=== PATIENT | male | born 1985 | race Caucasian/White ===

== ENCOUNTER 2018-10-28 04:34 | Emergency (ER) | payer BC, SELFPAY ==
--- NOTE | 2018-10-28 04:37 | ED.BACK ---
HPI - Back Pain/Injury General Chief Complaint: Abdominal Pain Stated Complaint: Right side abdomen/back pain Time Seen by Provider: 10/28/18 04:36 Source: patient and family Mode of arrival: ambulatory Limitations: no limitations History of Present Illness HPI Narrative: 32-year-old male nonsmoker, otherwise healthy presents with a chief complaint of sudden onset right back pain with radiation around his right flank that woke him up this morning. He states that sharp, stabbing and intense. He denies provocation or palliation. He has nausea but denies any fever or shaking chills. He is not dizzy or weak or lightheaded. Has had some trouble with musculoskeletal back pain but states this is much different. He denies any recent injury MD Complaint: back pain Onset (ago): hour(s) Duration: constant Similar Symptoms Previously: No Location: right flank Severity: moderate Quality: sharp and aching Radiation: flank Relieving factors: none Exacerbating factors: none Associated symptoms: denies other symptoms Related Data Home Medications Medication Instructions Recorded Confirmed omeprazole magnesium [Acid Nip Wrapper 20 mg PO DAILY 10/28/18 10/28/18 (omeprazole)] Allergies Allergy/AdvReac Type Severity Reaction Status Date / Time No Known Drug Allergies Allergy Verified 10/28/18 04:47 Review of Systems Constitutional Denies chills, Denies fever(s), Denies lethargy and Denies weakness Eyes Denies change in vision, Denies eye discharge, Denies irritation and Denies loss of vision ENT Ears, Nose, Mouth, and Throat: Denies change in voice, Denies neck pain and Denies sore throat Cardiovascular Denies chest pain, Denies irregular heart rhythm, Denies lightheadedness, Denies palpitations, Denies dyspnea, Denies dyspnea on exertion and Denies orthopnea Respiratory Denies cough, Denies dyspnea, Denies dyspnea on exertion and Denies wheezing Gastrointestinal Gastrointestinal: Denies abdominal pain, Denies change in bowel habits, Denies diarrhea, Denies nausea and Denies vomiting Genitourinary Denies hematuria, Denies flank pain, Denies urinary incontinence and Denies urinary urgency Musculoskeletal Reports back pain and Denies neck pain Integumentary/Breasts Denies pruritus, Denies erythema, Denies rash and Denies wounds Neurologic Denies confusion, Denies loss of vision and Denies weakness Psychiatric Denies anxiety, Denies confusion, Denies depression, Denies homicidal ideation and Denies suicidal ideation Endocrine Denies palpitations Hematologic/Lymphatic Denies easy bruising Allergic/Immunologic Denies wheezing PFSH Social History Smoking Status: Never smoker Social History Smoking Status: Never smoker Exam Narrative Exam Narrative: GENERAL: Appears uncomfortable, appears to have difficulty finding a position of comfort HEAD: Atraumatic. Normocephalic. No temporal or scalp tenderness. EYES: Pupils equal round and reactive. Extraocular motions intact. No scleral icterus. No injection or drainage. ENT: Nose without bleeding, purulent drainage or septal hematoma. Throat without erythema, tonsillar hypertrophy or exudate. Uvula midline. Airway patent. NECK: Trachea midline. No JVD or lymphadenopathy. Supple, nontender, no meningeal signs. CARDIOVASCULAR: Regular rate and rhythm without murmurs, gallops, or rubs. RESPIRATORY: Clear to auscultation. Breath sounds equal bilaterally. No wheezes, rales, or rhonchi. GASTROINTESTINAL: Abdomen soft, non-tender, nondistended. No hepato-splenomegaly, or palpable masses. No guarding. EXTREMITIES: No clubbing, cyanosis, or edema. No joint tenderness, effusion, or edema noted. BACK: Nontender without deformity or crepitance. No flank tenderness. NEURO: AOx3. SKIN: No rash or erythema. Initial Vital Signs Initial Vital Signs: Vital Signs Temperature 98.0 F 10/28/18 04:48 Pulse Rate 78 10/28/18 04:48 Respiratory Rate 16 10/28/18 04:48 Blood Pressure 156/96 H 10/28/18 04:48 Pulse Oximetry 100 10/28/18 04:48 Course Orders Ordered: ED Orders 10/28/18 04:45 CT kidney ureter bladder (KUB) Stat 10/28/18 04:53 Alkaline Phosphatase Stat Aspartate Aminotransferase Stat Basic Metabolic Panel Stat Bilirubin Total Stat Complete Blood Count AUTO DIFF Stat Lipase Stat 10/28/18 06:04 US abdomen complete Stat Discontinued Medications Sodium Chloride (Normal Saline 0.9%) 1,000 mls @ 1,000 mls/hr IV BOLUS ONE Stop: 10/28/18 05:44 Last Admin: 10/28/18 04:56 Dose: 1,000 mls/hr Ketorolac Tromethamine (Toradol) 15 mg IV NOW ONE Stop: 10/28/18 04:46 Last Admin: 10/28/18 05:08 Dose: Not Given Ondansetron HCl (Zofran) 4 mg IV NOW ONE Stop: 10/28/18 04:46 Last Admin: 10/28/18 05:08 Dose: Not Given Vital Signs - 8 hr 10/28/18 04:48 10/28/18 05:30 10/28/18 06:20 Temperature 98.0 F Pulse Rate 78 72 70 Respiratory Rate 16 16 16 Blood Pressure 156/96 H Blood Pressure [Left Arm] 144/78 H 137/76 Pulse Oximetry 100 98 98 MDM - Back Pain/Injury Lab Data Result diagrams: 10/28/18 04:53 10/28/18 04:53 Lab Results 10/28/18 10/28/18 10/28/18 Range/Units 04:53 04:53 04:53 WBC 10.5 (4.5-11.0) X10^3/uL RBC 5.60 (4.5-5.9) X10^6/uL Hgb 16.4 (13.5-17.5) g/dL Hct 47.1 (41-53) % MCV 84.1 (80-100) fL MCH 29.2 (26-34) PG MCHC 34.8 (30-36) % RDW 13.5 (11.6-14.8) % Plt Count 285 (150-400) X10^3/uL Neut % (Auto) 60.0 (50-75) % Lymph % (Auto) 26.8 (25-40) % [place] % (Auto) 7.6 (3-14) % Eos % (Auto) 4.8 H (2-4) % Baso % (Auto) 0.8 (0-2) % Neut # (Auto) 6300 (8780-5639) /uL Lymph # (Auto) 2800 (3227-2681) /uL [place] # (Auto) 800 (0-900) /uL Eos # (Auto) 500 H (0-450) /uL Baso # (Auto) 100 (0-100) /uL Sodium 142 (137-145) mmol/L Potassium 4.0 (3.4-5.1) mmol/L Chloride 105 (98-107) mmol/L Carbon Dioxide 27 (22-32) mmol/L BUN 18 (9-20) mg/dL Creatinine 0.70 (0.66-1.25) mg/dL Estimated GFR > 60.0 (>60) mL/min BUN/Creatinine Ratio 25.7 H (6-22) Glucose 112 H (70-100) mg/dL Calcium 9.3 (8.4-10.2) mg/dL Total Bilirubin 1.1 (0.2-1.3) mg/dL AST 25 (17-59) IU/L Alkaline Phosphatase 82 (38-126) U/L Lipase 130 (23-300) U/L Urine Dip Bedside Urine Glucose Negative Bedside Urine Bilirubin - Negative Bedside Urine Ketone - Negative Urine Specific [place] 1.030 Bedside Urine Occult Blood - Negative Bedside Urine pH 6.0 Bedside Urine Protein - Negative Bedside Urine Urobilinogen - Negative Bedside Urine Nitrite - Negative Bedside Urine Leukocytes - Negative Esterase Discharge Plan Departure Patient Disposition: Home Clinical Impression: Biliary colic Instructions: DI for Biliary Colic Activity Restrictions/Additional Instructions: *You have been diagnosed with [ abdominal pain, likely biliary colic ] *What to do: *Take medications as directed *Follow up with your primary care provider in 2-3 days, call for an appointment. Let them know you were seen in the Emergency Department and that we ask that you be seen in follow up *Return to ER if you should have any new, worsening or concerning symptoms Prescriptions: No Action omeprazole magnesium [Acid Nip Wrapper (omeprazole)] 20 mg Capsule,Delayed Release(Dr/Ec) 20 mg PO DAILY RF: 0
--- NOTE | 2018-10-28 04:45 | DI.CT.S_ITS ---
PROCEDURE: CT KIDNEY URETER BLADDER (KUB) INDICATIONS: severe R flank pain with radiation around to front TECHNIQUE: Noncontrast 5 mm thick sections acquired from the diaphragms to the symphysis. 5 mm thick coronal and sagittal reformats were then performed. For radiation dose reduction, the following was used: automated exposure control, adjustment of mA and/or kV according to patient size. COMPARISON: None. FINDINGS: Image quality: Excellent. Lung bases: Lung bases are clear. Heart size is normal. Urinary system: Both kidneys are normal in size. No kidney stones. No hydronephrosis or perinephric fat stranding. Both ureters appear non-dilated throughout their expected courses. Bladder wall thickness is normal; no calcified bladder stones. Other solid organs: Liver is normal in size. Hepatic steatosis is seen. Small stones and hyperdense sludge material are seen in dependent portion of gallbladder lumen. No gallbladder wall thickening or pericholecystic fluid. Pancreas is normal in contours. Spleen is normal in size. No adrenal nodules. Peritoneum and bowel: Unenhanced bowel loops demonstrate normal wall thickness and caliber. No free fluid or air. Nodes and vessels: No retroperitoneal or mesenteric adenopathy by size criteria. A few subcentimeter lymph nodes are seen scattered in right lower quadrant mesentery, and measures up to 8 mm in short axis diameter, which could represent mesenteric adenitis. Aorta and inferior vena cava are normal in caliber. Abdominal wall: No ventral hernias. Pelvis: No free pelvic fluid. No inguinal hernias or adenopathy. Bones: No suspicious bony lesions. No vertebral body compression fractures. IMPRESSION: #1. No renal stone or hydronephrosis. #2. Cholelithiasis, no CT evidence of acute cholecystitis. Hepatic steatosis. #3. Normal appendix. No bowel obstruction. No free fluid or free air. Mildly prominent right lower quadrant mesenteric lymph nodes, which could indicate mesenteric adenitis. No significant discrepancy. Dictated by: John Stark M.D. on 10/28/2018 at 9:12 Approved by: John Stark M.D. on 10/28/2018 at 9:17
[2018-10-28 04:48] VITALS: BP 156/96; PULSE 78; RESP 16; TEMP 36.7; O2SAT 100; BMI 34.0
--- NOTE | 2018-10-28 04:52 | ED_ITS ---
HPI - Back Pain/Injury General Chief Complaint: Abdominal Pain Stated Complaint: Right side abdomen/back pain Time Seen by Provider: 10/28/18 04:36 Source: patient and family Mode of arrival: ambulatory Limitations: no limitations History of Present Illness HPI Narrative: 32-year-old male nonsmoker, otherwise healthy presents with a chief complaint of sudden onset right back pain with radiation around his right flank that woke him up this morning. He states that sharp, stabbing and intense. He denies provocation or palliation. He has nausea but denies any fever or shaking chills. He is not dizzy or weak or lightheaded. Has had some trouble with musculoskeletal back pain but states this is much different. He denies any recent injury MD Complaint: back pain Onset (ago): hour(s) Duration: constant Similar Symptoms Previously: No Location: right flank Severity: moderate Quality: sharp and aching Radiation: flank Relieving factors: none Exacerbating factors: none Associated symptoms: denies other symptoms Related Data Home Medications Medication Instructions Recorded Confirmed omeprazole magnesium [Acid Public Services Assistant 20 mg PO DAILY 10/28/18 10/28/18 (omeprazole)] Allergies Allergy/AdvReac Type Severity Reaction Status Date / Time No Known Drug Allergies Allergy Verified 10/28/18 04:47 Review of Systems Constitutional Denies chills, Denies fever(s), Denies lethargy and Denies weakness Eyes Denies change in vision, Denies eye discharge, Denies irritation and Denies loss of vision ENT Ears, Nose, Mouth, and Throat: Denies change in voice, Denies neck pain and Denies sore throat Cardiovascular Denies chest pain, Denies irregular heart rhythm, Denies lightheadedness, Denies palpitations, Denies dyspnea, Denies dyspnea on exertion and Denies orthopnea Respiratory Denies cough, Denies dyspnea, Denies dyspnea on exertion and Denies wheezing Gastrointestinal Gastrointestinal: Denies abdominal pain, Denies change in bowel habits, Denies diarrhea, Denies nausea and Denies vomiting Genitourinary Denies hematuria, Denies flank pain, Denies urinary incontinence and Denies urinary urgency Musculoskeletal Reports back pain and Denies neck pain Integumentary/Breasts Denies pruritus, Denies erythema, Denies rash and Denies wounds Neurologic Denies confusion, Denies loss of vision and Denies weakness Psychiatric Denies anxiety, Denies confusion, Denies depression, Denies homicidal ideation and Denies suicidal ideation Endocrine Denies palpitations Hematologic/Lymphatic Denies easy bruising Allergic/Immunologic Denies wheezing PFSH Social History Smoking Status: Never smoker Social History Smoking Status: Never smoker Exam Narrative Exam Narrative: GENERAL: Appears uncomfortable, appears to have difficulty finding a position of comfort HEAD: Atraumatic. Normocephalic. No temporal or scalp tenderness. EYES: Pupils equal round and reactive. Extraocular motions intact. No scleral icterus. No injection or drainage. ENT: Nose without bleeding, purulent drainage or septal hematoma. Throat without erythema, tonsillar hypertrophy or exudate. Uvula midline. Airway patent. NECK: Trachea midline. No JVD or lymphadenopathy. Supple, nontender, no meningeal signs. CARDIOVASCULAR: Regular rate and rhythm without murmurs, gallops, or rubs. RESPIRATORY: Clear to auscultation. Breath sounds equal bilaterally. No wheezes, rales, or rhonchi. GASTROINTESTINAL: Abdomen soft, non-tender, nondistended. No hepato- splenomegaly, or palpable masses. No guarding. EXTREMITIES: No clubbing, cyanosis, or edema. No joint tenderness, effusion, or edema noted. BACK: Nontender without deformity or crepitance. No flank tenderness. NEURO: AOx3. SKIN: No rash or erythema. Initial Vital Signs Initial Vital Signs: Vital Signs Temperature 98.0 F 10/28/18 04:48 Pulse Rate 78 10/28/18 04:48 Respiratory Rate 16 10/28/18 04:48 Blood Pressure 156/96 H 10/28/18 04:48 Pulse Oximetry 100 10/28/18 04:48 Course Orders Ordered: ED Orders 10/28/18 04:45 CT kidney ureter bladder (KUB) Stat 10/28/18 04:53 Alkaline Phosphatase Stat Aspartate Aminotransferase Stat Basic Metabolic Panel Stat Bilirubin Total Stat Complete Blood Count AUTO DIFF Stat Lipase Stat 10/28/18 06:04 US abdomen complete Stat Discontinued Medications Sodium Chloride (Normal Saline 0.9%) 1,000 mls @ 1,000 mls/hr IV BOLUS ONE Stop: 10/28/18 05:44 Last Admin: 10/28/18 04:56 Dose: 1,000 mls/hr Ketorolac Tromethamine (Toradol) 15 mg IV NOW ONE Stop: 10/28/18 04:46 Last Admin: 10/28/18 05:08 Dose: Not Given Ondansetron HCl (Zofran) 4 mg IV NOW ONE Stop: 10/28/18 04:46 Last Admin: 10/28/18 05:08 Dose: Not Given Vital Signs - 8 hr 10/28/18 04:48 10/28/18 05:30 10/28/18 06:20 Temperature 98.0 F Pulse Rate 78 72 70 Respiratory Rate 16 16 16 Blood Pressure 156/96 H Blood Pressure [Left Arm] 144/78 H 137/76 Pulse Oximetry 100 98 98 MDM - Back Pain/Injury Lab Data Result diagrams: 10/28/18 04:53 10/28/18 04:53 Lab Results 10/28/18 10/28/18 10/28/18 Range/Units 04:53 04:53 04:53 WBC 10.5 (4.5-11.0) X10^3/uL RBC 5.60 (4.5-5.9) X10^6/uL Hgb 16.4 (13.5-17.5) g/dL Hct 47.1 (41-53) % MCV 84.1 (80-100) fL MCH 29.2 (26-34) PG MCHC 34.8 (30-36) % RDW 13.5 (11.6-14.8) % Plt Count 285 (150-400) X10^3/uL Neut % (Auto) 60.0 (50-75) % Lymph % (Auto) 26.8 (25-40) % [place] % (Auto) 7.6 (3-14) % Eos % (Auto) 4.8 H (2-4) % Baso % (Auto) 0.8 (0-2) % Neut # (Auto) 6300 (2902-0376) /uL Lymph # (Auto) 2800 (5604-4906) /uL [place] # (Auto) 800 (0-900) /uL Eos # (Auto) 500 H (0-450) /uL Baso # (Auto) 100 (0-100) /uL Sodium 142 (137-145) mmol/L Potassium 4.0 (3.4-5.1) mmol/L Chloride 105 (98-107) mmol/L Carbon Dioxide 27 (22-32) mmol/L BUN 18 (9-20) mg/dL Creatinine 0.70 (0.66-1.25) mg/dL Estimated GFR > 60.0 (>60) mL/min BUN/Creatinine Ratio 25.7 H (6-22) Glucose 112 H (70-100) mg/dL Calcium 9.3 (8.4-10.2) mg/dL Total Bilirubin 1.1 (0.2-1.3) mg/dL AST 25 (17-59) IU/L Alkaline Phosphatase 82 (38-126) U/L Lipase 130 (23-300) U/L Urine Dip Bedside Urine Glucose Negative Bedside Urine Bilirubin - Negative Bedside Urine Ketone - Negative Urine Specific [place] 1.030 Bedside Urine Occult Blood - Negative Bedside Urine pH 6.0 Bedside Urine Protein - Negative Bedside Urine Urobilinogen - Negative Bedside Urine Nitrite - Negative Bedside Urine Leukocytes - Negative Esterase Discharge Plan Departure Patient Disposition: Home Clinical Impression: Biliary colic Instructions: DI for Biliary Colic Activity Restrictions/Additional Instructions: *You have been diagnosed with [ abdominal pain, likely biliary colic ] *What to do: *Take medications as directed *Follow up with your primary care provider in 2-3 days, call for an a ppointment. Let them know you were seen in the Emergency Department and that we ask that you be seen in follow up *Return to ER if you should have any new, worsening or concerning symptoms Prescriptions: No Action omeprazole magnesium [Acid Public Services Assistant (omeprazole)] 20 mg Capsule,Delayed Release(Dr/Ec) 20 mg PO DAILY RF: 0
[2018-10-28] MEDS: SODIUM CHLORIDE 0.9% 1,000 ML 1000 ML IV (04:56)
--- NOTE | 2018-10-28 05:11 | PC.NURSE ---
Pt reports at this time, abd/back pain resolved and declines Toradol and Zofran.
[2018-10-28 05:13] LABS: BUN Creatinine Ratio 25.7 (6-22); Blood Urea Nitrogen 18 mg/dL (9-20); Calcium 9.3 mg/dL (8.4-10.2); Carbon Dioxide 27 mmol/L (22-32); Chloride 105 mmol/L (98-107); Estimated Glomerular Filt Rate > 60.0 mL/min (>60); Glucose 112 mg/dL (70-100); HEMOLYSIS 16 (0-50); Sodium 142 mmol/L (137-145)
[2018-10-28 05:14] LABS: Add Manual Diff / Slide Review NO; Basophils Absolute Auto 100 /uL (0-100); Basophils Percent Auto 0.8 % (0-2); Eosinophils Absolute Auto 500 /uL (0-450); Eosinophils Percent Auto 4.8 % (2-4); Hematocrit 47.1 % (41-53); Hemoglobin 16.4 g/dL (13.5-17.5); Lymphocytes Absolute Auto 2800 /uL (1100-4500); Lymphocytes Percent Auto 26.8 % (25-40); Mean Corpuscular HGB Conc 34.8 % (30-36); Mean Corpuscular Hemoglobin 29.2 PG (26-34); Mean Corpuscular Volume 84.1 fL (80-100); Monocytes Absolute Auto 800 /uL (0-900); Monocytes Percent Auto 7.6 % (3-14); Neutrophils Absolute Auto 6300 /uL (1500-7000); Platelet Count 285 X10^3/uL (150-400); Red Cell Distribution Width 13.5 % (11.6-14.8); White Blood Cell Count 10.5 X10^3/uL (4.5-11.0)
[2018-10-28 05:25] LABS: Alkaline Phosphatase 82 U/L (38-126); Aspartate Aminotransferase 25 IU/L (17-59); Bilirubin Total 1.1 mg/dL (0.2-1.3); Lipase 130 U/L (23-300)
[2018-10-28 05:30] VITALS: BP 144/78; PULSE 72; RESP 16; O2SAT 98
--- NOTE | 2018-10-28 06:04 | DI.US.S_ITS ---
PROCEDURE: US ABDOMEN COMPLETE INDICATIONS: EPIGASTRIC PAIN TECHNIQUE: Real-time scanning was performed of the abdominal and retroperitoneal organs, with image documentation. COMPARISON: None. FINDINGS: Liver: Liver is normal in size. Increased liver parenchymal echotexture is seen. No discrete hepatic lesion. Gallbladder: 8mm stone is seen near gallbladder neck. No gallbladder wall thickening or sonographic Saunders's sign. Biliary ducts: Intrahepatic bile ducts are non-dilated. Extrahepatic bile duct caliber measures 5.3 mm. Normal is 6-7 mm or less in diameter, or 10 mm or less post-cholecystectomy. Pancreas: Visualized portions of the pancreas are sonographically normal. Spleen: Spleen is normal in size and homogeneous in echotexture. Kidneys: Kidneys are normal in size and echotexture. Right kidney measures 11.9 cm long; left kidney measures 13 cm long. No hydronephrosis or nephrolithiasis. No solid masses. Aorta: Visualized aorta is normal in caliber at less than 3 cm. Iliacs: Proximal common iliac arteries are normal in caliber at less than 2.5 cm. IVC: Intrahepatic inferior vena cava is patent. Miscellaneous: No free abdominal fluid. IMPRESSION: #1. Cholelithiasis with no sonographic evidence of acute cholecystitis. No biliary ductal dilatation. #2. Hepatic steatosis. No discrete hepatic lesion. Dictated by: John Stark M.D. on 10/28/2018 at 10:42 Approved by: John Stark M.D. on 10/28/2018 at 10:43
[2018-10-28 06:20] VITALS: BP 137/76; PULSE 70; RESP 16; O2SAT 98
[2018-10-28 07:09] VITALS: BP 133/79; PULSE 73; RESP 16; O2SAT 99
== END 2018-10-28 07:06 | disposition home or self-care (01) ==
PROVIDERS: Emergency Provider Emergency Medicine
DX: K80.50 Calculus of bile duct without cholangitis or cholecystitis without obstruction (principal); M54.9 Dorsalgia, unspecified
CPT/HCPCS: 36591; 74176; 76700; 80048; 81003; 82247; 83690; 84075; 84450; 85025; 96360; 96361; 99283; 99284

== ENCOUNTER 2019-03-10 04:01 | Emergency (ER) | payer BC, SELFPAY ==
--- NOTE | 2019-03-10 04:05 | ED_ITS ---
HPI - Abdominal Pain General Chief Complaint: Abdominal Pain Stated Complaint: gallbladder pain x3 hours Time Seen by Provider: 03/10/19 04:04 Source: patient Mode of arrival: ambulatory Limitations: no limitations History of Present Illness HPI narrative: Patient is a 33-year-old male with known gallbladder disease. Was diagnosed back in September of this year after visit here to the emergency department was diagnosed with an ultrasound. At that time he had normal LFTs and lipase and bilirubin. He was instructed to contact his primary provider for referral to see surgery. He does not have a primary provider so has not followed up with anyone regarding his symptoms. He states he has not had any symptoms since that time until Monday of this week where he stated that he had a ?flare? of his pain. He states that episode completely resolved and then returned again approximately 3 hours ago. He said he did eat some greasy foods last evening. No vomiting. His epigastric pain. Has not tried anything for symptoms prior to arrival. Related Data Home Medications Medication Instructions Recorded Confirmed omeprazole magnesium [Acid [employer] Specialist 20 mg PO DAILY 10/28/18 10/28/18 (omeprazole)] Previous Rx's Medication Instructions Recorded ondansetron 4 mg PO Q6H PRN #14 tab 03/10/19 tramadol [Ultram] 50 mg PO BID PRN #10 tab 03/10/19 Allergies Allergy/AdvReac Type Severity Reaction Status Date / Time No Known Drug Allergies Allergy Verified 10/28/18 04:47 Review of Systems Constitutional Denies fever(s) Cardiovascular Denies chest pain and Denies dyspnea Respiratory Denies dyspnea Gastrointestinal Gastrointestinal: Reports abdominal pain, Denies change in stool character, Denies nausea and Denies vomiting Integumentary/Breasts Denies new lesions and Denies rash Hematologic/Lymphatic Denies easy bleeding and Denies easy bruising [facility] Medical History Gastroesophageal reflux disease (Acute) Social History Smoking Status: Never smoker Social History Smoking Status: Never smoker Exam Initial Vital Signs Initial Vital Signs: Vital Signs Temperature 98.0 F 03/10/19 04:09 Pulse Rate 72 03/10/19 04:09 Respiratory Rate 18 03/10/19 04:09 Blood Pressure 162/97 H 03/10/19 04:09 Pulse Oximetry 100 03/10/19 04:09 Const General: cooperative, well developed and well groomed Orientation: alert, awake and oriented x3 HENMT Head: normal to inspection and normocephalic Eyes Periorbital: periorbital findings normal Resp Effort & Inspection: normal respiratory effort Auscultation: clear to auscultation bilaterally Cardio Rate: regular rate Rhythm: regular rhythm GI Inspection: non-distended Palpation: soft, No firm and tender (Epigastric tenderness without rebound or guarding) Skin Lesions: no lesions Rashes: no rashes Neuro General: alert and awake Cognition: normal cognition Speech: speech normal Extrem General: normal to inspection and capillary refill normal Psych Appearance: grossly normal and well kempt Course Orders Ordered: ED Orders 03/10/19 04:06 US abdomen limited Stat 03/10/19 04:25 Complete Blood Count AUTO DIFF Stat Comprehensive Metabolic Panel Stat Lipase Stat Discontinued Medications Sodium Chloride (Normal Saline 0.9%) 1,000 mls @ 1,000 mls/hr IV BOLUS ONE Stop: 03/10/19 05:04 Last Infusion: 03/10/19 05:46 Dose: 0 mls/hr Admin: 03/10/19 04:22 Dose: 1,000 mls/hr Morphine Sulfate (Morphine) 4 mg IV NOW ONE Stop: 03/10/19 04:06 Last Admin: 03/10/19 04:22 Dose: 4 mg Ondansetron HCl (Zofran) 4 mg IV NOW ONE Stop: 03/10/19 04:06 Last Admin: 03/10/19 04:22 Dose: 4 mg Vital Signs - 8 hr 03/10/19 04:09 03/10/19 05:10 Temperature 98.0 F Pulse Rate 72 70 Respiratory Rate 18 16 Blood Pressure 162/97 H Blood Pressure [Left Arm] 150/90 H Pulse Oximetry 100 99 MDM - Abdominal Pain Lab Data Attestation: I reviewed the patient's lab results. Result diagrams: 03/10/19 04:25 03/10/19 04:25 Lab Results 03/10/19 03/10/19 Range/Units 04:25 04:25 WBC 11.2 H (4.5-11.0) X10^3/uL RBC 5.40 (4.5-5.9) X10^6/uL Hgb 15.9 (13.5-17.5) g/dL Hct 44.9 (41-53) % MCV 83.2 (80-100) fL MCH 29.4 (26-34) PG MCHC 35.3 (30-36) % RDW 13.5 (11.6-14.8) % Plt Count 259 (150-400) X10^3/uL Neut % (Auto) 68.6 (50-75) % Lymph % (Auto) 20.6 L (25-40) % [place] % (Auto) 6.7 (3-14) % Eos % (Auto) 3.5 (2-4) % Baso % (Auto) 0.6 (0-2) % Neut # (Auto) 7700 H (9882-0105) /uL Lymph # (Auto) 2300 (1449-8596) /uL [place] # (Auto) 800 (0-900) /uL Eos # (Auto) 400 (0-450) /uL Baso # (Auto) 100 (0-100) /uL Sodium 139 (137-145) mmol/L Potassium 3.6 (3.4-5.1) mmol/L Chloride 102 (98-107) mmol/L Carbon Dioxide 28 (22-32) mmol/L BUN 19 (9-20) mg/dL Creatinine 0.80 (0.66-1.25) mg/dL Estimated GFR > 60.0 (>60) mL/min BUN/Creatinine Ratio 23.8 H (6-22) Glucose 113 H (70-100) mg/dL Calcium 9.1 (8.4-10.2) mg/dL Total Bilirubin 1.3 (0.2-1.3) mg/dL AST 24 (17-59) IU/L ALT 48 (21-72) IU/L Alkaline Phosphatase 98 (38-126) U/L Total Protein 7.5 (6.3-8.2) g/dL Albumin 4.3 (3.5-5.0) g/dL Globulin 3.2 (1.7-4.1) g/dL Albumin/Globulin Ratio 1.3 (1.0-2.8) Lipase 86 (23-300) U/L Imaging Data US - abdomen: Radiologist's impression: Preliminary read by real Radiology Cholelithiasis. Distended gallbladder which may simply related to patient's fasting. No gallbladder wall thickening or pericholecystic fluid indicate acute cholecystitis. MDM Narrative Medical decision making narrative: Patient's symptoms are improved after medications here in the emergency department. Ultrasound shows a distended gallbladder with cholelithiasis however no signs of acute cholecystitis. Labs unremarkable. LFTs unremarkable. Bilirubin unremarkable. He was given return precautions and follow-up instructions. Will treat symptoms currently. He expressed understanding and agreement plan. Discharge Plan Departure Patient Disposition: Home Clinical Impression: Cholelithiasis Qualifiers: Cholelithiasis location: gallbladder Cholecystitis presence: without cholecystitis Biliary obstruction: without biliary obstruction Qualified Code(s): K80.20 - Calculus of gallbladder without cholecystitis without obstruction Instructions: DI for Gallstones Activity Restrictions/Additional Instructions: Take the medications as directed as needed. You can contact 360 help use tablet sure primary provider. You can also contact the [facility] at to discuss the possibility of having your gallbladder removed. Return to the emergency department for any new or worsening symptoms Prescriptions: New tramadol [Ultram] 50 mg tablet 50 mg PO BID PRN (Reason: pain) Qty: 10 RF: 0 ondansetron 4 mg tablet,disintegrating 4 mg PO Q6H PRN (Reason: nausea and vomiting) Qty: 14 RF: 0 No Action omeprazole magnesium [Acid [employer] Specialist (omeprazole)] 20 mg Capsule,Delayed Release(Dr/Ec) 20 mg PO DAILY RF: 0
--- NOTE | 2019-03-10 04:06 | DI.US.S_ITS ---
PROCEDURE: US ABDOMEN LIMITED INDICATIONS: RIGHT UPPER QUADRANT PAIN TECHNIQUE: Real-time focused scanning was performed of the abdomen, with image documentation. COMPARISON: None. FINDINGS: The liver is mildly enlarged at 18.6 cm in length. Diffusely increased echogenicity of the liver is identified when compared to the right kidney. However, there is decreased echogenicity identified involving the liver at the gallbladder fossa, suggesting an area of fatty sparing. No definite liver lesion is appreciated. The gallbladder is measuring within the upper limits of normal for size. Multiple tiny mobile gallstones are evident within the neck of the gallbladder. Borderline gallbladder wall thickening is present. There is no pericholecystic fluid. No intrahepatic biliary dilatation is appreciated. The common bile duct appears to be normal in size at approximately 4 mm. Imaged portions of the pancreas are unremarkable. The right kidney, abdominal aorta, and inferior vena cava were not imaged. IMPRESSION: 1. Cholelithiasis. Clinical correlation to exclude acute cholecystitis is recommended, given borderline thickening of the wall of the gallbladder. 2. Hepatic steatosis. Dictated by: Ron Vergara M.D. on 03/10/2019 at 8:40 Approved by: Ron Vergara M.D. on 03/10/2019 at 8:42
[2019-03-10 04:09] VITALS: BP 162/97; PULSE 72; RESP 18; TEMP 36.7; O2SAT 100; BMI 33.1
[2019-03-10] MEDS: MORPHINE 4 MG/ML INJ IV ×2 (04:22→06:07)
[2019-03-10] MEDS: SODIUM CHLORIDE 0.9% 1,000 ML 1000 ML IV (04:22)
[2019-03-10] MEDS: ONDANSETRON 4 MG/2 ML INJ IV (04:22)
--- NOTE | 2019-03-10 04:28 | PC.NURSE ---
Ultrasound paged at [phone]
[2019-03-10 04:36] LABS: Add Manual Diff / Slide Review NO; Basophils Absolute Auto 100 /uL (0-100); Basophils Percent Auto 0.6 % (0-2); Eosinophils Absolute Auto 400 /uL (0-450); Eosinophils Percent Auto 3.5 % (2-4); Hematocrit 44.9 % (41-53); Hemoglobin 15.9 g/dL (13.5-17.5); Lymphocytes Absolute Auto 2300 /uL (1100-4500); Lymphocytes Percent Auto 20.6 % (25-40); Mean Corpuscular HGB Conc 35.3 % (30-36); Mean Corpuscular Hemoglobin 29.4 PG (26-34); Mean Corpuscular Volume 83.2 fL (80-100); Monocytes Absolute Auto 800 /uL (0-900); Monocytes Percent Auto 6.7 % (3-14); Neutrophils Absolute Auto 7700 /uL (1500-7000); Neutrophils Percent Auto 68.6 % (50-75); Platelet Count 259 X10^3/uL (150-400); Red Cell Distribution Width 13.5 % (11.6-14.8); White Blood Cell Count 11.2 X10^3/uL (4.5-11.0)
[2019-03-10 04:44] LABS: Alanine Aminotransferase 48 IU/L (21-72); Albumin 4.3 g/dL (3.5-5.0); Albumin Globulin Ratio 1.3 (1.0-2.8); Alkaline Phosphatase 98 U/L (38-126); Aspartate Aminotransferase 24 IU/L (17-59); BUN Creatinine Ratio 23.8 (6-22); Bilirubin Total 1.3 mg/dL (0.2-1.3); Blood Urea Nitrogen 19 mg/dL (9-20); Calcium 9.1 mg/dL (8.4-10.2); Carbon Dioxide 28 mmol/L (22-32); Chloride 102 mmol/L (98-107); Estimated Glomerular Filt Rate > 60.0 mL/min (>60); Globulin 3.2 g/dL (1.7-4.1); Glucose 113 mg/dL (70-100); HEMOLYSIS < 15 (0-50); Lipase 86 U/L (23-300); Potassium 3.6 mmol/L (3.4-5.1); Sodium 139 mmol/L (137-145); Total Protein 7.5 g/dL (6.3-8.2)
[2019-03-10 05:10] VITALS: BP 150/90; PULSE 70; RESP 16; O2SAT 99
[2019-03-10 06:13] VITALS: BP 148/80; PULSE 80; RESP 16; O2SAT 98
== END 2019-03-10 05:56 | disposition home or self-care (01) ==
PROVIDERS: Emergency Provider Emergency Medicine
DX: K80.20 Calculus of gallbladder without cholecystitis without obstruction (principal)
CPT/HCPCS: 36591; 76705; 80053; 83690; 85025; 96361; 96374; 96375; 96376; 99283; 99284; J2270; J2405

== ENCOUNTER 2019-05-21 16:45 | Outpatient (RCR) | payer BC, SELFPAY ==
--- NOTE | 2019-04-30 15:30 | PT.OIE ---
Current Diagnoses Lumbago with sciatica, right side (04/30/19) Past Medical History (Last Reviewed 03/10/19 @ 04:14 by Ricahrd Chowdhury DO) Gastroesophageal reflux disease (Acute) Visit Care Team Role Provider Type Vesna Dumont PA-C Attending Provider Advanced Test Car Driver Specialty: Internal Medicine Address: [address] [place] [address], [id number] Email: [email or web address] [facility] Initial Evaluation PT-OP-A Visit Information Start: 04/26/19 16:41 Freq: Status: Active Protocol: Document 04/30/19 08:18 LRN (Rec: 04/30/19 10:48 LRN [id number]) Out-Patient Physical Therapy Visit Information Visit Information Visit Type Initial Evaluation Visit Start Time 08:18 Visit Stop Time 09:15 Total Visit Minutes 57 Visit Number 1 Number of NUT SIFTER Visits 0 Evaluation Information Evaluation Date 04/30/19 Precautions Precautions History of back pain PT-OP-B Current Condition Start: 04/26/19 16:41 Freq: Status: Active Protocol: Document 04/30/19 08:18 LRN (Rec: 04/30/19 10:48 LRN [id number]) Current Condition History of Current Condition Onset Date 2 weeks ago Current Complaints R back and thigh (inner and anterior) pain. Occasional rocky SI pain. History of Current Condition Pt reports insidious onset of back soreness 2 weeks ago. He started doing stretches to keep it from getting worse. 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 He took Tramadol ( pain med), and a muscle relaxor that helped him to sleep. He returned to work and a couple days later returned to the walk in clinic and was given medications. He also saw a chiropractor without relief from his pain. Notes his body shifts when he has pain, but is straight when his pain goes away. Prior Treatments and Tests foster care therapist and was told to shift right. No tests. Future Testing and Treatments Planned None Developmental History Developmental History Previous back pain 1 yr ago of insidious onset, hip stretches had helped with good results and a week of missed work. Current episode of back pain of insidious onset worsened after spending 2-3 days in [place]. He has had foster care therapist that did not appear to be as helpful as it was in the past. He states he went to a walk-in clinic in [place] and was given medications. He comes to therapy reporting improvement in his condition since initial onset and would like full resolution of pain and education in preventing reoccurance of onset. Treatment Goals Patient/Caregiver Goals Pt goals: Not to be in pain. Learn self care to prevent reoccurance. Prior Functional Status Baseline Function- ADL's Independent Baseline Function- Mobility Independent Baseline Function- Work/School Works [employer] FT. Lifting up to 60# Baseline Function- Recreation/Hobbies Sit and plays video games. 1-2 hours getting up every hour Current Functional Impairments (Reported) Functional Limitations- ADL's Discomfort initially getting up out of a chair. Sitting: max 20' starts to get uncomfortable. Functional Limitations- Mobility/Gait Discomfort walking. Functional Limitations- Work/School Limiting lifting 10#-20#. Functional Limitations- Recreation/ Pain with sitting up straight Hobbies for video games. Must recline to play games but gets discomfort in anteromedial left thigh. Personal Factors Other Personal Factors That May Effect History of back pain. Therapy/Recovery Job requires heavy lifting. Regularly plays video games during free time. PT-OP-C Subjective Start: 04/26/19 16:41 Freq: Status: Active Protocol: Document 04/30/19 08:18 LRN (Rec: 04/30/19 10:48 LRN [id number]) Patient Questionnaires Oswestry Low Back Index Oswestry Score 16 Oswestry Impairment 1 to 19% Impaired (Score 1-19) OP-PT Pain Assessment Pain Assessment Grid Paper Pain Assessment Grid Completed Yes Location Low back Pain Location Details R>L, occasionally on the left Intensity 5 Scale Used Numeric (1 - 10) Description Aching R thigh Pain Location Details R anterior and medial thigh Intensity 2 Scale Used Numeric (1 - 10) Description Aching Home Pain Medication Use Pain Medications Used Yes Home Pain Medication Frequency Stomach medication, Tylenol and IBP as needed. Pain Behaviors Pain Behaviors Restlessness Comments Pain Comments Pt stood during history taking part of examination. PT-OP-F Manual Assessment Start: 04/26/19 16:41 Freq: Status: Active Protocol: Document 04/30/19 08:18 LRN (Rec: 05/02/19 13:29 LRN [id number]) Manual Assessments Soft Tissue Assessment Soft Tissue Mobility Assessment Prone: R SIJ is deep. Joint Mobility Assessment Joint Mobility Assessment L sacrum stuck in flexion. PT-OP-H Neuro Start: 04/26/19 16:41 Freq: Status: Active Protocol: Document 04/30/19 08:18 LRN (Rec: 05/02/19 13:29 LRN [id number]) Sensation Evaluation Comments Summary Comments Rocky LE sensation is intact. Deep Tendon Reflex & Clonus Assessment Deep Tendon Reflex Bilateral Achilles Deep Tendon Reflex 2+ Normal Bilateral Patellar Deep Tendon Reflex 2+ Normal PT-OP-J Posture/Palpation/Skin Start: 04/26/19 16:41 Freq: Status: Active Protocol: Document 04/30/19 08:18 LRN (Rec: 05/02/19 13:29 LRN [id number]) Posture Evaluation Position Standing Evaluation View All positions Head/C-Spine Posture Forward Head T-Spine Posture Flexible Scoliosis on (L) L-Spine Posture Increased Lordosis Scapula Posture (L) Depressed Pelvis Posture Anteriorly Tilted Hip Posture (L) Flexed,(R) Flexed Ankle/Foot Posture (L) Calcaneal Inversion,(R) Calcaneal Inversion,(L) Forefoot Inversion,(R) Forefoot Inversion Foot Arch (L) Low Arch,(R) Low Arch Palpation Assessment Location Low back Palpation Location R lumbar paraspinals and gluteals Palpation Findings Muscle Guarding PT-OP-K Range of Motion Start: 04/26/19 16:41 Freq: Status: Active Protocol: Document 04/30/19 08:18 LRN (Rec: 05/02/19 13:29 LRN [id number]) Lumbar Spine Range of Motion Lumbar Spine Active Degrees Testing Position Standing Flexion 55 Extension 25 Rotation Left 25 Rotation Right 30 Lateral Flexion Left 15 Lateral Flexion Right 13 ROM Limitations Pain Comments R PSIS with L sidebend Hip Goniometric Range of Motion Hip Right Passive Testing Position Supine Straight Leg Raise 50 Internal Rotation 15 External Rotation 70 Left Passive Testing Position Supine Straight Leg Raise 50 Internal Rotation 15 External Rotation 65 PT-OP-L Special Tests Start: 04/26/19 16:41 Freq: Status: Active Protocol: Document 04/30/19 08:18 LRN (Rec: 04/30/19 10:48 LRN [id number]) Special Tests Neural Special Tests- Lower Body Sciatic Nerve Tension Test Results + bilaterally Comments PSLR is 50 deg's bilaterally PT-OP-M Strength Start: 04/26/19 16:41 Freq: Status: Active Protocol: Document 04/30/19 08:18 LRN (Rec: 05/02/19 13:29 LRN [id number]) Trunk Strength Trunk Manual Muscle Testing Testing Position Supine Flexion 3+ Fair+ Rotation Left 3+ Fair+ Rotation Right 3+ Fair+ Lateral Flexion Left 3+ Fair+ Lateral Flexion Right 3+ Fair+ Hip Strength Hip Manual Muscle Testing Right Reason Not Measured WFL Left Reason Not Measured WFL PT-OP-Q Treatments Start: 04/26/19 16:41 Freq: Status: Active Protocol: Document 04/30/19 08:18 LRN (Rec: 04/30/19 17:08 LRN [id number]) Therapeutic Exercises Supine Exercises TA Supine Exercise Name TA awareness training and wan using MESA training. Reps/Minutes 8 Manual Therapy Treatment Joint Mobilizations Innominate mobs Direction Correction for R anterior/L posterior rot innominate Body Position Supine Reps/Duration 9 Self-Care/Home Management Treatment Education Patient Education Body Mechanics,Home Exercise Program Activities Self-Care/Home Management Activities I/S pt to work on TA contraction, proper bending/ squat mechanics using leg vs back to bend over. PT-OP-T Assessment and Plan Start: 04/26/19 16:41 Freq: Status: Active Protocol: Document 04/30/19 08:18 LRN (Rec: 04/30/19 10:48 LRN [id number]) Physical Therapy Assessment Rehab Potential Rehabilitation Potential Good Evaluation Complexity Number of Personal Factors/Comorbidities 1-2 Number of Body Systems Impaired 4 or More Clinical Presentation at Evaluation Evolving Impairments Impairments Activity Tolerance,Pain, Posture,ROM,Strength Other Concerns Fall Risk No Age Related Concerns Effect of injury on home and social settings. Barriers to Rehabilitation Pt working in a physically demanding job. Goals Four Impairment Pt unable to perform a TA contraction to provide proper core stability. Short Term Goal (STG) Pt will be able to contract his TA on command and reflexively. STG Duration 05/21/19 [facility] Goal (LTG) Pt will be able to maintain core stability with movements of his LE's against gravity during LE MMT. LTG Duration 06/11/19 Three Impairment Pt lacks knowledge of proper body mechanics and is limited in lifting [employer] Goal (LTG) Pt will be able to lift 60# without pain. LTG Duration 06/11/19 Two Impairment R anterior and medial thigh pain, occasional back pain [facility] Goal (LTG) Eliminate R leg and back pain with pt able to return to work without reoccurance of pain. LTG Duration 06/11/19 One Impairment Lacks appropriate HEP [facility] Goal (LTG) Pt will be independent in a self care HEP. LTG Duration 06/25/19 Assessment Summary Assessment Pt presents with a mechanical and soft tissue dysfunction of the pelvic region with a rotation of the R innominate anteriorly/L innominate posteriorly muscle guarding of the R hip and LE. He demonstrates core weakness and lacks proper body mechanics training. The pt will benefit from skilled physical therapy for manual and soft tissue therapy, neuro reeducation, core stabilization, education in proper transfer and body mechanics and therapeutic exercises and education in a self prison program. Physical Therapy Plan Frequency and Duration Frequency of Treatment 2x/Week Duration of Treatment 6-8 weeks. Plan of Care Start Date 04/30/19 Plan of Care End Date 06/25/19 Therapeutic Interventions Therapeutic Interventions Home Exercise Program,Joint Mobilizations,Manual Therapy, Neuromuscular Re-education, Patient/Caregiver Education, Self-Care/Home Management,Soft Tissue Mobilization,Taping, Therapeutic Exercises Modalities Cold Pack/Ice Massage,Electric Stimulation,Hot Packs, Ultrasound Next Visit Focus/Plan Next Note Type Treatment Note Next Visit Plan The pt is planning on going for a week vacation next week; therefore start with MET for postural corrections, and body mechanics training, HEP of core stabilization exs to do on vacation. End with cryotherapy and modalities if needed for pain. When the pt returns, progress the pt when stable with core stabilization and for preparation for return to work with good body mechanics for safe and proper care of his back.
--- NOTE | 2019-05-03 16:27 | PT.OTN ---
Current Diagnoses Lumbago with sciatica, right side (05/03/19) Physical Therapy Treatment Note PT-OP-A Visit Information Start: 04/26/19 16:41 Freq: Status: Active Protocol: Document 05/03/19 11:20 LRN (Rec: 05/03/19 12:07 LRN [id number]) Out-Patient Physical Therapy Visit Information Visit Information Visit Type Treatment Note Visit Start Time 11:21 Visit Stop Time 12:04 Total Visit Minutes 43 Visit Number 2 Number of SUPERVISOR MARBLE Visits 0 Evaluation Information Evaluation Date 04/30/19 Precautions Precautions History of back pain PT-OP-B Current Condition Start: 04/26/19 16:41 Freq: Status: Active Protocol: Document 04/30/19 08:18 LRN (Rec: 04/30/19 10:48 LRN [id number]) Current Condition History of Current Condition Onset Date 2 weeks ago Current Complaints R back and thigh (inner and anterior) pain. Occasional rocky SI pain. History of Current Condition Pt reports insidious onset of back soreness 2 weeks ago. He started doing stretches to keep it from getting worse. 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 He took Tramadol ( pain med), and a muscle relaxor that helped him to sleep. He returned to work and a couple days later returned to the walk in clinic and was given medications. He also saw a chiropractor without relief from his pain. Notes his body shifts when he has pain, but is straight when his pain goes away. Prior Treatments and Tests social worker palliative care and was told to shift right. No tests. Future Testing and Treatments Planned None Developmental History Developmental History Previous back pain 1 yr ago of insidious onset, hip stretches had helped with good results and a week of missed work. Current episode of back pain of insidious onset worsened after spending 2-3 days in [place]. He has had social worker palliative care that did not appear to be as helpful as it was in the past. He states he went to a walk-in clinic in [place] and was given medications. He comes to therapy reporting improvement in his condition since initial onset and would like full resolution of pain and education in preventing reoccurance of onset. Treatment Goals Patient/Caregiver Goals Pt goals: Not to be in pain. Learn self care to prevent reoccurance. Prior Functional Status Baseline Function- ADL's Independent Baseline Function- Mobility Independent Baseline Function- Work/School Works [employer]. Lifting up to 60# Baseline Function- Recreation/Hobbies Sit and plays video games. 1-2 hours getting up every hour Current Functional Impairments (Reported) Functional Limitations- ADL's Discomfort initially getting up out of a chair. Sitting: max 20' starts to get uncomfortable. Functional Limitations- Mobility/Gait Discomfort walking. Functional Limitations- Work/School Limiting lifting 10#-20#. Functional Limitations- Recreation/ Pain with sitting up straight Hobbies for video games. Must recline to play games but gets discomfort in anteromedial left thigh. Personal Factors Other Personal Factors That May Effect History of back pain. Therapy/Recovery Job requires heavy lifting. Regularly plays video games during free time. PT-OP-C Subjective Start: 04/26/19 16:41 Freq: Status: Active Protocol: Document 05/03/19 11:20 LRN (Rec: 05/03/19 15:59 LRN [id number]) OP-PT Subjective Patient Comments Patient Comments States he has been better, now has a dull pain rated 1/10. He did return to work yesterday and tried to move properly, so he did not have an increase in pain by end of work day. Patient Reported Progress Improving PT-OP-F Manual Assessment Start: 04/26/19 16:41 Freq: Status: Active Protocol: Document 04/30/19 08:18 LRN (Rec: 05/02/19 13:29 LRN [id number]) Manual Assessments Soft Tissue Assessment Soft Tissue Mobility Assessment Prone: R SIJ is deep. Joint Mobility Assessment Joint Mobility Assessment L sacrum stuck in flexion. PT-OP-H Neuro Start: 04/26/19 16:41 Freq: Status: Active Protocol: Document 04/30/19 08:18 LRN (Rec: 05/02/19 13:29 LRN [id number]) Sensation Evaluation Comments Summary Comments Rocky LE sensation is intact. Deep Tendon Reflex & Clonus Assessment Deep Tendon Reflex Bilateral Achilles Deep Tendon Reflex 2+ Normal Bilateral Patellar Deep Tendon Reflex 2+ Normal PT-OP-J Posture/Palpation/Skin Start: 04/26/19 16:41 Freq: Status: Active Protocol: Document 04/30/19 08:18 LRN (Rec: 05/02/19 13:29 LRN [id number]) Posture Evaluation Position Standing Evaluation View All positions Head/C-Spine Posture Forward Head T-Spine Posture Flexible Scoliosis on (L) L-Spine Posture Increased Lordosis Scapula Posture (L) Depressed Pelvis Posture Anteriorly Tilted Hip Posture (L) Flexed,(R) Flexed Ankle/Foot Posture (L) Calcaneal Inversion,(R) Calcaneal Inversion,(L) Forefoot Inversion,(R) Forefoot Inversion Foot Arch (L) Low Arch,(R) Low Arch Palpation Assessment Location Low back Palpation Location R lumbar paraspinals and gluteals Palpation Findings Muscle Guarding PT-OP-K Range of Motion Start: 04/26/19 16:41 Freq: Status: Active Protocol: Document 04/30/19 08:18 LRN (Rec: 05/02/19 13:29 LRN [id number]) Lumbar Spine Range of Motion Lumbar Spine Active Degrees Testing Position Standing Flexion 55 Extension 25 Rotation Left 25 Rotation Right 30 Lateral Flexion Left 15 Lateral Flexion Right 13 ROM Limitations Pain Comments R PSIS with L sidebend Hip Goniometric Range of Motion Hip Right Passive Testing Position Supine Straight Leg Raise 50 Internal Rotation 15 External Rotation 70 Left Passive Testing Position Supine Straight Leg Raise 50 Internal Rotation 15 External Rotation 65 PT-OP-L Special Tests Start: 04/26/19 16:41 Freq: Status: Active Protocol: Document 04/30/19 08:18 LRN (Rec: 04/30/19 10:48 LRN [id number]) Special Tests Neural Special Tests- Lower Body Sciatic Nerve Tension Test Results + bilaterally Comments PSLR is 50 deg's bilaterally PT-OP-M Strength Start: 04/26/19 16:41 Freq: Status: Active Protocol: Document 04/30/19 08:18 LRN (Rec: 05/02/19 13:29 LRN [id number]) Trunk Strength Trunk Manual Muscle Testing Testing Position Supine Flexion 3+ Fair+ Rotation Left 3+ Fair+ Rotation Right 3+ Fair+ Lateral Flexion Left 3+ Fair+ Lateral Flexion Right 3+ Fair+ Hip Strength Hip Manual Muscle Testing Right Reason Not Measured WFL Left Reason Not Measured WFL PT-OP-Q Treatments Start: 04/26/19 16:41 Freq: Status: Active Protocol: Document 05/03/19 11:20 LRN (Rec: 05/03/19 12:07 LRN [id number]) Therapeutic Exercises Supine Exercises Rocky heel slides Supine Exercise Name TA w/Rocky heel slides in neutral Reps/Minutes 10x Comments Additional time for training to perform with feet together. TA with PF Supine Exercise Name TA with PF Comments Reviewed SI Jt dysfunction phase I Supine Exercise Name Ball squeeze, R leg thrust, Bridge, DKTC stretch Comments Ball sqeeze and R leg thrust x 3 each, Bridge x 5, DKTC stretch x 3 TA Supine Exercise Name TA awareness training and wan using MESA training. Side bilateral Reps/Minutes 8 Comments Pt does not contract TA reflexively, having trouble properly wan. Standing Exercises Wall Slides Standing Exercise Name Wall Slides to 90/90 Comments Pt had increased R hip pain towards end of 10 reps. Manual Therapy Treatment Joint Mobilizations Innominate mobs Joint R innominate Direction Correction for R anterior rot innominate and inflare. Body Position Supine Reps/Duration 10' Comments Assessed and pt education in awareness of pelvic rotation. Self-Care/Home Management Treatment Education Patient Education Home Exercise Program Other Education Body mechanics education for standing, lifting, sitting, airplane sitting, precautions for turning lifts. Activities Self-Care/Home Management Activities Issued and reviewed self care/ HEP: SIJ dysfunction Phase I for correction of R anterioly rotated innominate. PT-OP-T Assessment and Plan Start: 04/26/19 16:41 Freq: Status: Active Protocol: Document 05/03/19 11:20 LRN (Rec: 05/03/19 12:07 LRN [id number]) Physical Therapy Assessment Assessment Summary Assessment Pt much improved with pain less and rated 1/10. Pt is moving with improved body mechanics and was easy to correct pelvic rotation. Pt was R anteriorly rotated and inflared to start. Pt not ready for standing core strengthening due to onset of R hip pain with wall slides. He tends to be in the trunk in L sidebend. Physical Therapy Plan Frequency and Duration Frequency of Treatment 2x/Week Duration of Treatment 6-8 weeks. Plan of Care Start Date 04/30/19 Plan of Care End Date 06/25/19 Next Visit Focus/Plan Next Note Type Treatment Note Next Visit Plan Pt care to be transferred to [facility] due to scheduling requirements for later evening appointments. Recheck pt on return from vacation. Start MET for postural corrections as needed , progress the pt when stable with core stabilization and for stability to return to work with good body mechanics and safety in the work environment. Pt to have knowledge of proper back care. End with cryotherapy and modalities if needed for pain.
--- NOTE | 2019-05-21 17:47 | PT.OTN ---
Current Diagnoses Lumbago with sciatica, right side (05/21/19) Physical Therapy Treatment Note PT-OP-A Visit Information Start: 04/26/19 16:41 Freq: Status: Active Protocol: Document 05/21/19 16:55 LRH (Rec: 05/21/19 17:47 LRH [id number]) Out-Patient Physical Therapy Visit Information Visit Information Visit Type Treatment Note Visit Start Time 16:50 Visit Stop Time 17:30 Total Visit Minutes 40 Visit Number 3 Number of GRAIN MERCHANDISING MANAGER Visits 0 PT-OP-B Current Condition Start: 04/26/19 16:41 Freq: Status: Active Protocol: Document 04/30/19 08:18 LRN (Rec: 04/30/19 10:48 LRN [id number]) Current Condition History of Current Condition Onset Date 2 weeks ago Current Complaints R back and thigh (inner and anterior) pain. Occasional akil SI pain. History of Current Condition Pt reports insidious onset of back soreness 2 weeks ago. He started doing stretches to keep it from getting worse. 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 He took Tramadol ( pain med), and a muscle relaxor that helped him to sleep. He returned to work and a couple days later returned to the walk in clinic and was given medications. He also saw a chiropractor without relief from his pain. Notes his body shifts when he has pain, but is straight when his pain goes away. Prior Treatments and Tests career development associate and was told to shift right. No tests. Future Testing and Treatments Planned None Developmental History Developmental History Previous back pain 1 yr ago of insidious onset, hip stretches had helped with good results and a week of missed work. Current episode of back pain of insidious onset worsened after spending 2-3 days in [place]. He has had career development associate that did not appear to be as helpful as it was in the past. He states he went to a walk-in clinic in [place] and was given medications. He comes to therapy reporting improvement in his condition since initial onset and would like full resolution of pain and education in preventing reoccurance of onset. Treatment Goals Patient/Caregiver Goals Pt goals: Not to be in pain. Learn self care to prevent reoccurance. Prior Functional Status Baseline Function- ADL's Independent Baseline Function- Mobility Independent Baseline Function- Work/School Works [employer] FT. Lifting up to 60# Baseline Function- Recreation/Hobbies Sit and plays video games. 1-2 hours getting up every hour Current Functional Impairments (Reported) Functional Limitations- ADL's Discomfort initially getting up out of a chair. Sitting: max 20' starts to get uncomfortable. Functional Limitations- Mobility/Gait Discomfort walking. Functional Limitations- Work/School Limiting lifting 10#-20#. Functional Limitations- Recreation/ Pain with sitting up straight Hobbies for video games. Must recline to play games but gets discomfort in anteromedial left thigh. Personal Factors Other Personal Factors That May Effect History of back pain. Therapy/Recovery Job requires heavy lifting. Regularly plays video games during free time. PT-OP-C Subjective Start: 04/26/19 16:41 Freq: Status: Active Protocol: Document 05/21/19 16:55 LRH (Rec: 05/21/19 17:47 LRH [id number]) OP-PT Subjective Patient Comments Patient Comments Pt reports pain is much better and isn't bothering him much but he wants to make sure he prevents this from happening again. PT-OP-F Manual Assessment Start: 04/26/19 16:41 Freq: Status: Active Protocol: Document 04/30/19 08:18 LRN (Rec: 05/02/19 13:29 LRN [id number]) Manual Assessments Soft Tissue Assessment Soft Tissue Mobility Assessment Prone: R SIJ is deep. Joint Mobility Assessment Joint Mobility Assessment L sacrum stuck in flexion. PT-OP-H Neuro Start: 04/26/19 16:41 Freq: Status: Active Protocol: Document 04/30/19 08:18 LRN (Rec: 05/02/19 13:29 LRN [id number]) Sensation Evaluation Comments Summary Comments Akil LE sensation is intact. Deep Tendon Reflex & Clonus Assessment Deep Tendon Reflex Bilateral Achilles Deep Tendon Reflex 2+ Normal Bilateral Patellar Deep Tendon Reflex 2+ Normal PT-OP-J Posture/Palpation/Skin Start: 04/26/19 16:41 Freq: Status: Active Protocol: Document 04/30/19 08:18 LRN (Rec: 05/02/19 13:29 LRN [id number]) Posture Evaluation Position Standing Evaluation View All positions Head/C-Spine Posture Forward Head T-Spine Posture Flexible Scoliosis on (L) L-Spine Posture Increased Lordosis Scapula Posture (L) Depressed Pelvis Posture Anteriorly Tilted Hip Posture (L) Flexed,(R) Flexed Ankle/Foot Posture (L) Calcaneal Inversion,(R) Calcaneal Inversion,(L) Forefoot Inversion,(R) Forefoot Inversion Foot Arch (L) Low Arch,(R) Low Arch Palpation Assessment Location Low back Palpation Location R lumbar paraspinals and gluteals Palpation Findings Muscle Guarding PT-OP-K Range of Motion Start: 04/26/19 16:41 Freq: Status: Active Protocol: Document 04/30/19 08:18 LRN (Rec: 05/02/19 13:29 LRN [id number]) Lumbar Spine Range of Motion Lumbar Spine Active Degrees Testing Position Standing Flexion 55 Extension 25 Rotation Left 25 Rotation Right 30 Lateral Flexion Left 15 Lateral Flexion Right 13 ROM Limitations Pain Comments R PSIS with L sidebend Hip Goniometric Range of Motion Hip Right Passive Testing Position Supine Straight Leg Raise 50 Internal Rotation 15 External Rotation 70 Left Passive Testing Position Supine Straight Leg Raise 50 Internal Rotation 15 External Rotation 65 PT-OP-L Special Tests Start: 04/26/19 16:41 Freq: Status: Active Protocol: Document 04/30/19 08:18 LRN (Rec: 04/30/19 10:48 LRN [id number]) Special Tests Neural Special Tests- Lower Body Sciatic Nerve Tension Test Results + bilaterally Comments PSLR is 50 deg's bilaterally PT-OP-M Strength Start: 04/26/19 16:41 Freq: Status: Active Protocol: Document 04/30/19 08:18 LRN (Rec: 05/02/19 13:29 LRN [id number]) Trunk Strength Trunk Manual Muscle Testing Testing Position Supine Flexion 3+ Fair+ Rotation Left 3+ Fair+ Rotation Right 3+ Fair+ Lateral Flexion Left 3+ Fair+ Lateral Flexion Right 3+ Fair+ Hip Strength Hip Manual Muscle Testing Right Reason Not Measured WFL Left Reason Not Measured WFL PT-OP-Q Treatments Start: 04/26/19 16:41 Freq: Status: Active Protocol: Document 05/21/19 16:55 LRH (Rec: 05/21/19 17:47 LRH [id number]) Therapeutic Exercises Supine Exercises bridge Side bilateral Reps/Minutes 10 LTR Supine Exercise Name lower trunk rotation Side bilateral Reps/Minutes 10 Comments feet on ground with focus on segmental control dying bugs Supine Exercise Name alt/opp arm/leg ext Side bilateral Reps/Minutes 15 Isometrics Supine Exercise Name abdomenal series: flex & diagonal pushes Side bilateral Reps/Minutes 30 sec ea leg dropps Supine Exercise Name knees 90/90 w/alt leg drops Side bilateral Reps/Minutes 10x2 Akil heel slides Supine Exercise Name TA w/Akil heel slides in neutral Reps/Minutes 10x Comments Additional time for training to perform with feet together. Prone Exercises plank Prone Exercise Name forearms & feet & hands & feet Reps/Minutes [id number]; 30 sec Therapeutic Activity Therapeutic Activity wt shifting Name seated wt shift faciliation lifting mechanics Comments 1. hip hinging 2. squatting PT-OP-T Assessment and Plan Start: 04/26/19 16:41 Freq: Status: Active Protocol: Document 05/21/19 16:55 [facility] (Rec: 05/21/19 17:47 [facility] [id number]) Physical Therapy Assessment Goals Four Impairment Pt unable to perform a TA contraction to provide proper core stability. Short Term Goal (STG) Pt will be able to contract his TA on command and reflexively. STG Duration 05/21/19 Banding Machine Operator Goal (LTG) Pt will be able to maintain core stability with movements of his LE's against gravity during LE MMT. LTG Duration 06/11/19 Three Impairment Pt lacks knowledge of proper body mechanics and is limited in lifting Fdc Goal (LTG) Pt will be able to lift 60# without pain. LTG Duration 06/11/19 Two Impairment R anterior and medial thigh pain, occasional back pain Fdc Goal (LTG) Eliminate R leg and back pain with pt able to return to work without reoccurance of pain. LTG Duration 06/11/19 One Impairment Lacks appropriate HEP Fdc Goal (LTG) Pt will be independent in a self care HEP. LTG Duration 06/25/19 Assessment Summary Assessment Pt required cueing through abdomenal exercises for keeping neutral spine & maintaining Tabd brace. He had significant difficulty with hip hinging and required use of yard stick along his back to work on mechanics. he cont to have difficulty with this activites unitl working on hip hinging & wt acceptance into LE in seated. Physical Therapy Plan Frequency and Duration Frequency of Treatment 2x/Week Duration of Treatment 6-8 weeks. Plan of Care Start Date 04/30/19 Plan of Care End Date 06/25/19 Next Visit Focus/Plan Next Note Type Treatment Note Next Visit Plan cont to advance core exercises & lifting mechanics
== END 2019-05-22 13:01 ==
LOC: PHYS 16:45
PROVIDERS: Visit Provider Physician Assistant
DX: M54.41 Lumbago with sciatica, right side (principal)
CPT/HCPCS: 97110; 97140; 97162; 97530; 97535

== ENCOUNTER 2019-05-22 23:50 | Observation (INO) | payer BC, SELFPAY ==
[2019-05-22 23:57] VITALS: BP 156/107; PULSE 70; RESP 15; TEMP 36.9; O2SAT 100; BMI 32.7
[2019-05-23] VITALS (17 sets, daily range): BP systolic 115–150; BP diastolic 44–94; PULSE 67–101; RESP 9–24; TEMP 36.2–37.1; O2SAT 89–100; BMI 32.7
--- NOTE | 2019-05-23 | DI.RAD.S_ITS ---
PROCEDURE: XR ABDOMEN MIN 2V INDICATIONS: UNKNOWN ARTIFACT POSSIBLY INSIDE PATIENT TECHNIQUE: 2 views of the abdomen were acquired. COMPARISON: [facility], CT, CT KIDNEY URETER BLADDER (KUB), 10/28/2018, 5:00. FINDINGS: Surgical changes and devices: None. Bowel: No pneumoperitoneum. The bowel gas pattern is normal. Soft tissues: No masses; visualized solid organ contours appear normal in size. No suspicious abdominal calcifications. There is a metallic foreign body projecting over the left iliac crest. A linear hyperdensity projecting to the right lower pelvis. Bones: No suspicious bony abnormalities. IMPRESSION: A metallic foreign body projecting over the left iliac crest and a linear hyperdensity projecting to the right lower pelvis. Dictated by: Mary Noe M.D. on 05/23/2019 at 15:41 Approved by: Mary Noe M.D. on 05/23/2019 at 15:45
--- NOTE | 2019-05-23 | PATH_ITS ---
[facility] Accession Number: [id number] . 01 Material submitted: . gallbladder - GALLBLADDER AND CONTENTS . 01 Clinical history: . PLEASE CHECK FOR SMALL METAL FRAGMENTS OTHER THAN CLIPS . 02 Diagnosis: Gallbladder and Contents, Cholecystectomy: Acute and chronic cholecystitis, cholelithiasis, and cholesterolosis. No small metal fragments identified at gross examination. MRV 05/29/2019 0912 Local . 02 Electronically signed: . Homa Goetz MD, Pathologist NPI- [id number] . 01 Gross description: . Received in formalin, labeled gallbladder and contents, is an opened gallbladder (length-9.2 cm, diameter-3.3 cm) with lang-jones smooth shiny serosa and a patent cystic duct. No lymph nodes are identified. The lumen contains green gelatinous bile and multiple dark green gritty friable calculi (0.5 x 0.2 x 0.1 cm in aggregate). The mucosa is jones, smooth and flat. The wall is up to 0.2 cm thick. No nodules, masses or lesions are identified. Section code: (A1) cystic duct resection margin and two serial sections from the body; (A2) two longitudinal sections from the fundus. Note: No small metal fragments are identified. ([id number]) /MRV 05/28/2019 1122 Local . 02 Pathologist provided ICD-10: K81.2, K80.60 . 02 CPT . 467370 Performed at: 01 [facility] [address] [place] [address] [id number] MD Abilio Wilkerson MD Phone: [phone] Performed at: 02 [facility] [id number] [place] [address] [id number] MD Jackie Cuellar MD Phone: [phone]
--- NOTE | 2019-05-23 00:15 | DI.US.S_ITS ---
PROCEDURE: US ABDOMEN LIMITED INDICATIONS: RIGHT UPPER QUADRANT PAIN TECHNIQUE: Real-time focused scanning was performed of the abdomen, with image documentation. COMPARISON: [facility], US, US ABDOMEN LIMITED, 03/10/2019, 4:47. CT KUB 10/28/2018 FINDINGS: Liver: Normal in size. Increased in echogenicity. Gallbladder: Mildly distended. Several non-mobile stones near the gallbladder neck. Gallbladder wall thickness is within normal limits measuring 2 mm. No pericholecystic fluid. Positive sonographic Saunders's sign. Bile duct: No intrahepatic ductal dilatation. CBD measures 4 mm and is normal. Pancreas: Not well-seen. Miscellaneous: No free fluid. IMPRESSION: 1. Indeterminate for acute cholecystitis. Gallbladder is mildly distended with non-mobile stones in gallbladder neck. However, the gallbladder wall is not thickened and there is no pericholecystic fluid. The patient reports tenderness over the gallbladder. HIDA scan could be helpful for further evaluation. 2. Hepatic steatosis. 3. No biliary ductal dilatation. This report is concordant with the overnight preliminary interpretation. Dictated by: George Cosme M.D. on 05/23/2019 at 7:44 Approved by: George Cosme M.D. on 05/23/2019 at 7:48
[2019-05-23 00:26] LABS: Alanine Aminotransferase 34 IU/L (21-72); Albumin 4.8 g/dL (3.5-5.0); Albumin Globulin Ratio 1.3 (1.0-2.8); Alkaline Phosphatase 106 U/L (38-126); Aspartate Aminotransferase 28 IU/L (17-59); Bilirubin Total 1.5 mg/dL (0.2-1.3); Blood Urea Nitrogen 16 mg/dL (9-20); Calcium 9.3 mg/dL (8.4-10.2); Carbon Dioxide 32 mmol/L (22-32); Chloride 100 mmol/L (98-107); Estimated Glomerular Filt Rate > 60.0 mL/min (>60); Globulin 3.7 g/dL (1.7-4.1); Glucose 114 mg/dL (70-100); HEMOLYSIS < 15 (0-50); Lipase 80 U/L (23-300); Potassium 3.8 mmol/L (3.4-5.1); Sodium 141 mmol/L (137-145); Total Protein 8.5 g/dL (6.3-8.2)
[2019-05-23] MEDS: KETOROLAC 60 MG/2 ML VIAL 30 MG IV (00:27)
[2019-05-23] MEDS: ONDANSETRON 4 MG/2 ML INJ IV (00:27)
[2019-05-23] MEDS: SODIUM CHLORIDE 0.9% 1,000 ML 150 ML IV ×4 (00:27→17:56)
[2019-05-23 00:35] LABS: Add Manual Diff / Slide Review NO; Basophils Absolute Auto 0 /uL (0-100); Basophils Percent Auto 0.4 % (0-2); Eosinophils Absolute Auto 300 /uL (0-450); Eosinophils Percent Auto 2.7 % (2-4); Hematocrit 45.5 % (41-53); Lymphocytes Absolute Auto 2300 /uL (1100-4500); Lymphocytes Percent Auto 18.5 % (25-40); Mean Corpuscular HGB Conc 35.1 % (30-36); Mean Corpuscular Hemoglobin 29.2 PG (26-34); Mean Corpuscular Volume 83.1 fL (80-100); Monocytes Absolute Auto 800 /uL (0-900); Monocytes Percent Auto 6.8 % (3-14); Neutrophils Absolute Auto 8700 /uL (1500-7000); Neutrophils Percent Auto 71.6 % (50-75); Platelet Count 313 X10^3/uL (150-400); Red Blood Cell Count 5.48 X10^6/uL (4.5-5.9); White Blood Cell Count 12.1 X10^3/uL (4.5-11.0)
--- NOTE | 2019-05-23 00:42 | ED.ABDPAIN ---
HPI - Abdominal Pain General Chief Complaint: Abdominal Pain Stated Complaint: states gall bladder attack Time Seen by Provider: 05/22/19 23:55 Source: patient Mode of arrival: Ambulatory Limitations: no limitations History of Present Illness HPI narrative: Patient is a 33-year-old male who presents right upper quadrant pain. He has a history of gallbladder attacks and fact he had 1 in February of 2019. He states he did not follow-up with a surgeon as he was instructed to do so. He says over the last 2 weeks he has had increasing attacks. Tonight he had pizza for dinner and around 9:00 p.m. he started pain. He took a tramadol to help with pain but it did not go away. He feels nauseous no vomiting. Earlier today he had some chest discomfort and felt like that was acid reflux. He does have a history of GERD. He takes omeprazole. He was given Toradol by nursing in the ED states that that has helped with pain significantly. MD complaint: abdominal pain Onset (ago): hour(s) Pain Consistency: now resolved Location: RUQ Quality: sharp Radiation: none Migration to: no migration Relieving factors: nothing Related Data Home Medications Medication Instructions Recorded Confirmed omeprazole magnesium [Acid Clerical Administrative Assistant 20 mg PO DAILY 10/28/18 05/23/19 (omeprazole)] Previous Rx's Medication Instructions Recorded ondansetron 4 mg PO Q6H PRN #14 tab 03/10/19 Allergies Allergy/AdvReac Type Severity Reaction Status Date / Time No Known Drug Allergies Allergy Verified 04/24/19 12:00 Review of Systems Review of Systems Narrative: GENERAL: Denies chills, fatigue, malaise, fever, sweats, travel HEENT: Denies sinus pain, ear pain, sore throat, difficulty swallowing, neck pain RESPIRATORY: Denies dyspnea, cough, wheezing, hemoptysis, sputum. CARDIOVASCULAR: Denies chest pain, palpitations, orthopnea, edema GASTROINTESTINAL: See HPI : Denies dysuria, frequency, incontinence, hematuria, urinary retention, flank pain. MUSCULOSKELETAL: Denies weakness, joint pain, or bony pain SKIN: No rash, no erythema, no pruritus NEUROLOGIC: Denies weakness, dizziness, headache, numbness, change in speech, confusion PSYCHIATRIC: No concerning psychosocial issues. 12 point review of systems is negative except for those stated above and HPI Patient History Social History household members: family Smoking Status: Never smoker alcohol intake frequency: other Substance Use Type: does not use Exam Initial Vital Signs Initial Vital Signs: Vital Signs Temperature 98.4 F 05/22/19 23:57 Pulse Rate 70 05/22/19 23:57 Respiratory Rate 15 05/22/19 23:57 Blood Pressure 156/107 H 05/22/19 23:57 Pulse Oximetry 100 05/22/19 23:57 GENERAL: Well-appearing, well-nourished and in no acute distress. HEENT: Head atraumatic,EOMI, pupils reactive, face symmetric, moist mucous membranes CARDIOVASCULAR: Regular rate and rhythm without murmurs, rubs or gallops. RESPIRATORY: Breath sounds equal bilaterally, no wheezes rales or rhonchi. ABDOMEN: Soft, minimal right upper quadrant pain negative Saunders sign no guarding or rebound : No CVA tenderness EXTREMITIES: Normal range of motion, no clubbing or edema. Neurovascularly intact NEUROLOGICAL: Alert and oriented x4.Normal gait and speech. SKIN: Warm, dry, no laceration, no petechiae, no rashes or lesions. Course Orders Ordered: ED Orders 05/23/19 00:15 US abdomen limited Stat Complete Blood Count AUTO DIFF Stat Comprehensive Metabolic Panel Stat Lipase Stat 05/23/19 00:50 EKG-12 Lead Stat Hydromorphone HCl (Dilaudid) 0.5 mg IV Q4H PRN PRN Reason: Pain, Moderate (4-6) Sodium Chloride (Normal Saline 0.9%) 1,000 mls @ 150 mls/hr IV CONT MARLA Last Infusion: 05/23/19 02:21 Dose: 150 mls/hr Documented by: Admin: 05/23/19 00:27 Dose: 150 mls/hr Documented by: MMCFARL Piperacillin/Tazobactam/Dextrose (Zosyn) 3.375 gm in 50 mls @ 100 mls/hr IV Q6H MARLA Last Admin: 05/23/19 02:36 Dose: 100 mls/hr Documented by: MARIJA Sodium Chloride (Normal Saline 0.9%) 1,000 mls @ 150 mls/hr IV CONT MARLA Last Admin: 05/23/19 02:44 Dose: 150 mls/hr Documented by: MARIJA Ondansetron HCl (Zofran) 4 mg IV Q4HR PRN PRN Reason: Nausea And Vomiting Discontinued Medications Ketorolac Tromethamine (Toradol) 30 mg IV NOW ONE Stop: 05/23/19 00:15 Last Admin: 05/23/19 00:27 Dose: 30 mg Documented by: LISE Ondansetron HCl (Zofran) 4 mg IV NOW ONE Stop: 05/23/19 00:15 Last Admin: 05/23/19 00:27 Dose: 4 mg Documented by: LISE Consultations Consultation #1: Surgery has been a updated patient's symptoms and test results. Agrees with admission recommend Zosyn IV fluids pain meds nausea medication and NPO. Time: 02:02 Vital Signs Vital signs: Vital Signs - 8 hr 05/22/19 23:57 Temperature 98.4 F Pulse Rate 70 Respiratory Rate 15 Blood Pressure 156/107 H Pulse Oximetry 100 MDM - Abdominal Pain Lab Data Attestation: I reviewed the patient's lab results. Result diagrams: 05/22/19 23:50 05/22/19 23:50 Labs: Lab Results 05/22/19 05/22/19 Range/Units 23:50 23:50 WBC 12.1 H (4.5-11.0) X10^3/uL RBC 5.48 (4.5-5.9) X10^6/uL Hgb 16.0 (13.5-17.5) g/dL Hct 45.5 (41-53) % MCV 83.1 (80-100) fL MCH 29.2 (26-34) PG MCHC 35.1 (30-36) % RDW 13.0 (11.6-14.8) % Plt Count 313 (150-400) X10^3/uL Neut % (Auto) 71.6 (50-75) % Lymph % (Auto) 18.5 L (25-40) % [place] % (Auto) 6.8 (3-14) % Eos % (Auto) 2.7 (2-4) % Baso % (Auto) 0.4 (0-2) % Neut # (Auto) 8700 H (1484-3512) /uL Lymph # (Auto) 2300 (5075-8854) /uL [place] # (Auto) 800 (0-900) /uL Eos # (Auto) 300 (0-450) /uL Baso # (Auto) 0 (0-100) /uL Sodium 141 (137-145) mmol/L Potassium 3.8 (3.4-5.1) mmol/L Chloride 100 (98-107) mmol/L Carbon Dioxide 32 (22-32) mmol/L BUN 16 (9-20) mg/dL Creatinine 0.80 (0.66-1.25) mg/dL Estimated GFR > 60.0 (>60) mL/min BUN/Creatinine Ratio 20.0 (6-22) Glucose 114 H (70-100) mg/dL Calcium 9.3 (8.4-10.2) mg/dL Total Bilirubin 1.5 H (0.2-1.3) mg/dL AST 28 (17-59) IU/L ALT 34 (21-72) IU/L Alkaline Phosphatase 106 (38-126) U/L Total Protein 8.5 H (6.3-8.2) g/dL Albumin 4.8 (3.5-5.0) g/dL Globulin 3.7 (1.7-4.1) g/dL Albumin/Globulin Ratio 1.3 (1.0-2.8) Lipase 80 (23-300) U/L Imaging Data US - abdomen: Radiologist's impression: Preliminary report: Findings suggestive of early developing acute cholecystitis. There is cholelithiasis present. Gallbladder contains nonmobile dependent stones. Gallbladder wall is not thickened measuring 1.7 mm and is not edematous. There is positive sonographic Saunders sign. There is minimal pericholecystic fluid. No common biliary dilatation. ECG Data Attestation: I personally reviewed and interpreted this ECG as follows: Prior ECG tracings: not available for review Interpretation: Normal sinus rhythm rate 66 p.r. interval [address] elevation or depression no T-wave inversion no sign of ischemia MDM Narrative Medical decision making narrative: Patient has no leukocytosis minimal elevation of bilirubin at 1.5 liver enzymes and lipase are within normal limits. He does have dependent stones an early signs of acute cholecystitis on ultrasound. I have called and spoken with surgery who recommended antibiotics and NPO. Discharge Plan Departure Patient Disposition: Admitted as Observation Clinical Impression: Cholecystitis Cholelithiasis Qualifiers: Cholelithiasis location: gallbladder Cholecystitis presence: without cholecystitis Biliary obstruction: without biliary obstruction Qualified Code(s): K80.20 - Calculus of gallbladder without cholecystitis without obstruction Discharge Date/Time: 05/23/19 02:21 Admit Date/Time: 05/23/19 02:03 Admit Provider: Xavi Amato
[2019-05-23 02:12] LABS: Bacteria Urine None Seen; RBC Urine None Seen (0-5/HPF); WBC Urine None Seen (0-5/HPF)
[2019-05-23 02:20] LABS: Culture Indicated Urine Cult Not Indicated; Hyaline Casts Urine 0-1/LPF; Squamous Epithelial Cell Urine 0-1 /HPF (0-5/HPF)
[2019-05-23] MEDS: PIPERACILLIN-TAZO 3.375 GM/50 ML FROZ.PIGGY IV ×2 (02:36→08:40)
--- NOTE | 2019-05-23 02:45 | PC.ADMIT ---
[id number] Admission Note: Pt arrived to unit at 0220 without issues. Awake and alert. SBA. Voiding without difficulty in toilet. Pt denies any pain in abdomen at this time. No complaints of nausea. Instructed patient to call for assistance. ESTELITA The patient,Gonzalo Hough,33 y/o, was given written information regarding hospital policies, unit procedures and contact persons. Patient's smoking status: Never smoker. Vital Signs - 8 hr 05/22/19 23:57 05/23/19 02:20 05/23/19 02:40 Temperature 98.4 F 97.2 F L Pulse Rate 70 70 82 Respiratory Rate 15 15 16 Blood Pressure 156/107 H 134/77 139/74 Pulse Oximetry 100 100 98
[2019-05-23 07:52] LABS: Add Manual Diff / Slide Review NO; Basophils Absolute Auto 100 /uL (0-100); Basophils Percent Auto 0.6 % (0-2); Eosinophils Absolute Auto 200 /uL (0-450); Eosinophils Percent Auto 2.3 % (2-4); Hematocrit 41.4 % (41-53); Hemoglobin 14.6 g/dL (13.5-17.5); Lymphocytes Absolute Auto 2100 /uL (1100-4500); Lymphocytes Percent Auto 19.6 % (25-40); Mean Corpuscular HGB Conc 35.2 % (30-36); Mean Corpuscular Hemoglobin 29.3 PG (26-34); Mean Corpuscular Volume 83.2 fL (80-100); Monocytes Absolute Auto 800 /uL (0-900); Monocytes Percent Auto 7.6 % (3-14); Neutrophils Absolute Auto 7500 /uL (1500-7000); Neutrophils Percent Auto 69.9 % (50-75); Platelet Count 259 X10^3/uL (150-400); Red Blood Cell Count 4.97 X10^6/uL (4.5-5.9); Red Cell Distribution Width 12.9 % (11.6-14.8); White Blood Cell Count 10.7 X10^3/uL (4.5-11.0)
--- NOTE | 2019-05-23 07:55 | P.HP_ITS ---
History of Present Illness History of Present Illness Date Patient Seen: 05/23/19 Time Patient Seen: 08:00 Chief complaint: states gall bladder attack Narrative: This is a 33-year-old male who presents with acute onset of right upper quadrant pain. Over the past 2 months he has had several episodes of biliary colic. He was consuming pizza last night when he had severe right upper quadrant pain that did not resolve as his prior episodes normally did. He presented to the emergency room where he was exquisitely tender in the right upper quadrant white blood cell count 12 total bilirubin 1.5. LFTs otherwise normal. Ultrasound demonstrated multiple nonmobile stones within the gallbladder neck, no dilation of the common bile duct. He is a nonsmoker, history of gastroesophageal reflux disease otherwise no major medical conditions, no prior abdominal surgery Patient History Medical History Gastroesophageal reflux disease (Acute) Family & Social History Social History: household members family Prior Living Arrangements House Safety & Behavioral: Feels Safe in Current Yes Environment Suicidal Ideation Description None Suicide Plan Description No Plan Tobacco & Substance use: Smoking Status Never smoker alcohol intake frequency other Substance Use Type does not use Meds Home Medications and Allergies Home Medications Medication Instructions Recorded Confirmed Type omeprazole magnesium [Acid Windows Server Support Technician 20 mg PO DAILY 10/28/18 05/23/19 History (omeprazole)] ondansetron 4 mg PO Q6H PRN #14 tab 03/10/19 05/23/19 Rx Allergies Allergy/AdvReac Type Severity Reaction Status Date / Time No Known Drug Allergies Allergy Verified 04/24/19 12:00 Review of Systems Review of Systems ROS Unobtainable: All systems reviewed & are unremarkable except as noted in HPI and below Exam Vital Signs (past 8 hours): - 05/22/19 23:57 05/23/19 02:20 05/23/19 02:40 Temperature 98.4 F 97.2 F L Pulse Rate 70 70 82 Respiratory Rate 15 15 16 Blood Pressure 156/107 H 134/77 139/74 Pulse Oximetry 100 100 98 05/23/19 06:32 Temperature 97.2 F L Pulse Rate 67 Respiratory Rate 16 Blood Pressure 141/73 H Pulse Oximetry 100 Oxygen Delivery Method Room Air Narrative Exam Narrative: General-no acute distress, well nourished HEENT-moist mucous membranes, no scleral icterus Neck-supple, no lymphadenopathy Chest- non labored respirations, clear to auscultation bilaterally Cardiac-regular rate no peripheral edema Abdomen-non distended. Tender RUQ improved from last night Extremities-warm, well perfused Neurological-alert and oriented, no focal deficits Objective Labs Result Diagrams: 05/23/19 07:35 05/22/19 23:50 Labs: Laboratory Results - last 24 hr 05/22/19 05/22/19 05/23/19 23:50 23:50 02:08 WBC 12.1 H RBC 5.48 Hgb 16.0 Hct 45.5 MCV 83.1 MCH 29.2 MCHC 35.1 RDW 13.0 Plt Count 313 Neut % (Auto) 71.6 Lymph % (Auto) 18.5 L [place] % (Auto) 6.8 Eos % (Auto) 2.7 Baso % (Auto) 0.4 Neut # (Auto) 8700 H Lymph # (Auto) 2300 [place] # (Auto) 800 Eos # (Auto) 300 Baso # (Auto) 0 Sodium 141 Potassium 3.8 Chloride 100 Carbon Dioxide 32 BUN 16 Creatinine 0.80 Estimated GFR > 60.0 BUN/Creatinine Ratio 20.0 Glucose 114 H Calcium 9.3 Total Bilirubin 1.5 H AST 28 ALT 34 Alkaline Phosphatase 106 Total Protein 8.5 H Albumin 4.8 Globulin 3.7 Albumin/Globulin Ratio 1.3 Lipase 80 Urine RBC None seen Urine WBC None seen Ur Squamous Epith Cells 0-1 /hpf Urine Bacteria None seen Hyaline Casts 0-1/lpf Ur Culture Indicated? Cult not indicated 05/23/19 07:35 WBC 10.7 RBC 4.97 Hgb 14.6 Hct 41.4 MCV 83.2 MCH 29.3 MCHC 35.2 RDW 12.9 Plt Count 259 Neut % (Auto) 69.9 Lymph % (Auto) 19.6 L [place] % (Auto) 7.6 Eos % (Auto) 2.3 Baso % (Auto) 0.6 Neut # (Auto) 7500 H Lymph # (Auto) 2100 [place] # (Auto) 800 Eos # (Auto) 200 Baso # (Auto) 100 Sodium Potassium Chloride Carbon Dioxide BUN Creatinine Estimated GFR BUN/Creatinine Ratio Glucose Calcium Total Bilirubin AST ALT Alkaline Phosphatase Total Protein Albumin Globulin Albumin/Globulin Ratio Lipase Urine RBC Urine WBC Ur Squamous Epith Cells Urine Bacteria Hyaline Casts Ur Culture Indicated? Assessment & Plan Assessment and plan (1) Cholecystitis: Current visit: Yes Status: Acute Assessment & Plan narrative: This is a 33-year-old male with history of biliary colic who presents with acute cholecystitis. He presented with acute onset of right upper quadrant pain, WBC 12, and ultrasound demonstrating cholelithiasis. His total bilirubin was 1.5 on admission last night a repeat is pending for this morning. We will proceed with a laparoscopic cholecystectomy today. We discussed the risk of the operation including bleeding infection damage to surrounding structures need for conversion to open. His questions have been answered and he is in agreement with this plan. -NPO IV fluid -Zosyn SCDs and pLovenox for VTE prophylaxis -if repeat total bilirubin remains abnormal will require intraoperative cholangiogram during the cholecystectomy. Quality VTE Deep Vein Thrombosis/Pulmonary Embolism Present on Admission: No
[2019-05-23 07:57] LABS: Alanine Aminotransferase 32 IU/L (21-72); Albumin 3.9 g/dL (3.5-5.0); Albumin Globulin Ratio 1.4 (1.0-2.8); Alkaline Phosphatase 81 U/L (38-126); Aspartate Aminotransferase 24 IU/L (17-59); BUN Creatinine Ratio 18.6 (6-22); Bilirubin Total 1.4 mg/dL (0.2-1.3); Blood Urea Nitrogen 13 mg/dL (9-20); Calcium 8.8 mg/dL (8.4-10.2); Carbon Dioxide 30 mmol/L (22-32); Chloride 105 mmol/L (98-107); Estimated Glomerular Filt Rate > 60.0 mL/min (>60); Globulin 2.8 g/dL (1.7-4.1); Glucose 107 mg/dL (70-100); HEMOLYSIS < 15 (0-50); Potassium 3.9 mmol/L (3.4-5.1); Sodium 142 mmol/L (137-145); Total Protein 6.7 g/dL (6.3-8.2)
--- NOTE | 2019-05-23 11:05 | PC.NURSE ---
Day shift: Pt off unit to surgery at approx 1110. Expect Pt to return by approx 1300 today.
[2019-05-23] MEDS: LACTATED RINGERS 1,000 ML 42 ML IV ×3 (11:20→16:15)
--- NOTE | 2019-05-23 12:22 | CM.DANOTE ---
DCP assessment: EMR reviewed: patient is a 33 yr old male who was admitted for gall bladder removal. patient currently lives at home with mother and girlfriend. Patient stated he has no PCP. CM met with Patient and patients mother at bedside and explained CM role. Patient is I at baseline for all ADL's. Patient is schedualed for surgery today 05/23/2019 at 3pm. Cm gave list of PCP providers in [place]. Insurance: [facility] 2nd: self pay Plan: DC home with family when medically stable. no identified d/c planning needs noted Palak Hernandez RN. Discharge Planning/Care Management CM Discharge Assessment Start: 05/23/19 12:20 Freq: Status: Active Protocol: Document 05/23/19 12:20 HS (Rec: 05/23/19 12:21 HS [id number]) Discharge Planning Assessment Assigned Parts Department Supervisor Palak Hernandez RN DPOA/Assigned Designee Name Luisa Hough (mom) Contact Information [phone] Advance Directives? No History Provided By Patient,Family Member Has Patient been admitted in last 30 No days? Prior Living Arrangements House Household Members significant other,family Type of transporation used prior to Drives own vehicle admit Independent with ADL's Yes Is patient alert and oriented? Yes Caregiver for Another No Discharge Plan Home Whiteboard Updated in Patient Room with Yes name and ext. # of Parts Department Supervisor Review Status In Process Next Review Type Continued Stay Review
--- NOTE | 2019-05-23 12:51 | SUR.OPER ---
Supine on padded OR bed, head on pillow, safety belt at thigh. Arms secured on padded arm boards <90 degrees abduction. Legs uncrossed. Padded footboard in place. Tape over blanket to secure lower legs.
[2019-05-23] MEDS: BUPIVACAINE 0.25% (PF) VIAL 30 ML INJ (12:56)
--- NOTE | 2019-05-23 14:10 | PC.NURSE ---
Day shift: Pt remains off AC unit at this time.
--- NOTE | 2019-05-23 15:16 | DI.CT.S_ITS ---
PROCEDURE: CT ABDOMEN PELVIS WO CON INDICATIONS: broken surgical instrument check for retained metal. TECHNIQUE: After the administration of oral contrast, 5 mm thick sections acquired from the diaphragms to the symphysis. 5 mm coronal and sagittal reformats were performed. For radiation dose reduction, the following was used: automated exposure control, adjustment of mA and/or kV according to patient size. COMPARISON: [facility], US, US ABDOMEN LIMITED, 05/23/2019, 1:08. [facility], CR, XR ABDOMEN MIN 2V, 05/23/2019, 14:02. FINDINGS: Image quality: Excellent. ABDOMEN: Lung bases: Bibasilar dependent atelectasis. Heart size is normal. Solid organs: Gallbladder is surgically absent. Mild stranding in the gallbladder fossa is consistent with recent surgery. Surgical clips noted in the gallbladder fossa. Liver is normal in size. Pancreas is normal in size. Spleen is normal in size. No adrenal nodules. Both kidneys are normal in size, without hydronephrosis or nephrolithiasis. Peritoneum and bowel: There is a small amount of free air and a small amount of free fluid, consistent with postoperative change. Bowel loops demonstrate normal wall thickness and caliber. Nodes and vessels: No retroperitoneal or mesenteric adenopathy by size criteria. Aorta and inferior vena cava are normal in size. Miscellaneous: No ventral hernias. Surgical ports are noted in anterior abdominal wall. Tiny fat-containing umbilical hernia. PELVIS: Genitourinary: Bladder wall thickness is normal. Miscellaneous: No inguinal hernias or adenopathy. Bones: No suspicious bony lesions. No vertebral body compression fractures. IMPRESSION: 1. No radial opaque foreign bodies identified. 2. Cholecystectomy. 3. A small amount of free air and free fluid are compatible with postoperative changes. 4. Bibasilar atelectasis. Dictated by: Mary Noe M.D. on 05/23/2019 at 17:35 Approved by: Mary Noe M.D. on 05/23/2019 at 17:43
[2019-05-23] MEDS: HYDROMORPHONE 2 MG INJ 0.5 MG IV (16:14)
[2019-05-23] MEDS: hydrOXYzine 50 MG/ML INJ 25 MG IM (16:14)
[2019-05-23] MEDS: HYDROMORPHONE 0.5 MG INJ IV (17:55)
--- NOTE | 2019-05-23 18:17 | PC.NURSE ---
Addendum entered by Sowmya Valverde R.N. 05/23/19 21:19: D/c to home written by . D/C teaching provided. took script to fill before pharmacy closed. Pt dressed. IV removed. Pt escorted out via w/c in stable condition with all personal belongings. Original Note: Pt arrived from PACU at approx 1700. A/O, Band-aids to abd c/d/i. Attempted to void in urinal without success. Ambulated to bathroom shortly after and voided. Straight cath not placed. IVF infusing per mar from Pre-op orders. Msg left for Surgeon for post-op diet and IV fluid orders. Significant other at bedside. Medicated per mar for 4/10 abd pain. Call light within reach.
--- NOTE | 2019-05-24 09:25 | PM.OP.1 ---
Operative Date/Time/Diagnoses Date of procedure: 05/24/19 Time of procedure: 09:25 Pre-op diagnosis: Acute cholecystitis Post-op diagnosis: same Procedure & Clinicians Procedure: Laparoscopic cholecystectomy Same procedure as scheduled: Yes Indications: This is a 33-year-old male whose had several episodes biliary colic and presented with acute onset of persistent right upper quadrant pain and ultrasound showing gallstones and mild leukocytosis. He was taken to the operating room for elective laparoscopic cholecystectomy. Surgeon: Xavi Amato Senior Cyber Security Analyst: Greta Jacobo Click Yes if Unassisted: No Anesthesia Type: General Operative Notes Findings: Chronic cholecystitis Retrieval of 2 jaws of laparoscopic grasper CT demonstrates no retained foreign body Specimen(s): other (Gallbladder, surgical instrument) Estimated Blood Loss (mL): 20 Procedure in detail: The patient was brought to the operating room placed supine on the table. Bilateral lower extremity compression devices were applied. General anesthesia was induced and they were intubated with an endotracheal tube. They received 3.75 g of Zosyn prior to skin incision. A time-out was performed to ensure the correct patient procedure necessary equipment within the operating room. They were then prepped and draped in the usual sterile fashion. Infraumbilical incision was made the umbilical stalk was grasped and elevated and the fascia was sharply incised. The abdomen was entered atraumatically. A 10 mm trocar was then placed into the abdomen. Pneumoperitoneum was established. The laparoscopic camera was inserted into the abdomen inspection was made that demonstrated no evidence of injury upon entry. We then placed our working ports the 1st 5 mm port high in the epigastrium and then 2 in the right upper quadrant. The gallbladder was grasped and retracted well he same fashion. Next the gallbladder was removed from the liver bed using electro cautery. The liver bed was then inspected for hemostasis and this was achieved. The abdomen was irrigated with sterile saline and inspection was made that showed the clips in good position. Well grasping the gallbladder and attempting to place it into the Endo-Catch bag the laparoscopic grasper had mechanical failure. The specimen was removed using Endo-Catch. Inspection of the instrument demonstrated that the jaws of the grasper fractured at their attachment point to the grasper and were within the patient. For the next 2 hours a careful inspection of the abdomen was made and both jaws were ultimately removed using Endo-Catch from the patient's abdomen. I placed an additional 10 mm port midline between the umbilicus and the xiphoid to facilitate this laparoscopy. Additionally I requested the help of my partner to assist me with this difficult inspection. Fluoroscopy was used to investigate the the patient's abdomen as well as an intraoperative KUB to make an assessment as to whether there were any further retained metallic products within the patient. The results of these studies did not show any retained products. The 10 mm port between the umbilicus and the xiphoid was closed with a 0 Vicryl suture using a Pardeep Erickson device. The abdomen was desufflated. The the anterior fascia of the umbilicus was closed with 0 Vicryl in a [id number] fashion. Skin incisions were irrigated and closed with 4-0 Monocryl. The wounds were sealed Steri-Strips. Patient emerged from general anesthesia was extubated and transferred to the postoperative care unit missed stable condition. The sponge and instrument count at the end of the operation was correct. At the completion of the case I spoke with the patient's significant other and explained to them that the surgical instrument fractured within the patient. I told her the that the operation was otherwise straightforward that we had removed the jaws of the grasper from his abdomen, and that the preliminary radiographic studies including KUB fluoroscopy to were negative for further retained products. I explained that we would proceed with a CT of the abdomen pelvis to ensure that there were no remaining pieces. CT abdomen pelvis was performed and the results of this study shows that there were no retained metallic fragments within the body. After the patient had sufficiently recovered from anesthesia I discussed the events of the operation with the patient's significant other as well as the patient. Their questions were answered and they were satisfied with with our explanation. Complications: other (Fracturing of the laparoscopic grasper within the patient) Post-operative Condition: stable Disposition: Acute Care
--- NOTE | 2019-05-24 09:42 | PM.DS.1 ---
History of Present Illness History of Present Illness Chief complaint: states gall bladder attack Narrative: This is a 33-year-old male who presents with acute onset of right upper quadrant pain. Over the past 2 months he has had several episodes of biliary colic. He was consuming pizza last night when he had severe right upper quadrant pain that did not resolve as his prior episodes normally did. He presented to the emergency room where he was exquisitely tender in the right upper quadrant white blood cell count 12 total bilirubin 1.5. LFTs otherwise normal. Ultrasound demonstrated multiple nonmobile stones within the gallbladder neck, no dilation of the common bile duct. He is a nonsmoker, history of gastroesophageal reflux disease otherwise no major medical conditions, no prior abdominal surgery Discharge Providers Provider Date of admission: 05/23/19 02:03 Discharge Date: 05/23/19 Discharge provider: Xavi Amato MD Summary Hospital Course Discharge Diagnosis: Acute cholecystitis Hospital Course: 33-year-old male presented to the hospital with acute cholecystitis and history of biliary colic. He was admitted made NPO received IV Zosyn. Total bilirubin was 1.5 on admission the ultrasound demonstrated no dilation of his common bile duct no choledocholithiasis. The total bilirubin down trended and he underwent laparoscopic cholecystectomy. Please refer to the operative note for further detail. In summary there was a mechanical fracture of a laparoscopic grasper instrument within the patient that required removal of the jaws of the grasper laparoscopically. Postprocedure he underwent a CT of his abdomen pelvis the demonstrated no retained foreign body. Postoperatively the patient did well tolerated a regular diet without nausea vomiting was ambulatory and urinating spontaneously. Status at Discharge Cognitive/behavioral status at discharge: oriented Functional status at discharge: independent ambulation Overall status at discharge: patient is back to baseline Time Spent with Patient Time spent: Greater than 30 minutes Exam Vital Signs (past 8 hours): Oxygen Delivery Method Room Air Oxygen Flow Rate 0 Narrative Exam Narrative: General adult male alert oriented no acute distress Abdomen soft appropriately tender to palpation at the incisions incisions are clean dry intact Objective Labs Result Diagrams: 05/23/19 07:35 05/23/19 07:35 Discharge Plan Discharge Plan Patient Disposition: Home Discharge Med Rec/Prescriptions Prescriptions: New ibuprofen 200 mg tablet 800 mg PO Q6H PRN (Reason: pain) Qty: 60 RF: 0 oxycodone 5 mg tablet 5 mg PO Q6H PRN (Reason: pain) Qty: 30 RF: 0 acetaminophen [Tylenol] 325 mg capsule 650 mg PO QID PRN (Reason: pain) Qty: 60 RF: 0 Continued omeprazole magnesium [Acid Software Sales Representative (omeprazole)] 20 mg Capsule,Delayed Release(Dr/Ec) 20 mg PO DAILY RF: 0 Discontinued ondansetron 4 mg tablet,disintegrating 4 mg PO Q6H PRN (Reason: nausea and vomiting) Qty: 14 RF: 0 Follow up/Referrals: [facility] [Provider Group] Xavi Amato MD [Physician] - Provider Discharge Instructions Diet: Low-fat Activity: No lifting >20 lbs x 4 weeks. [address] while taking narcotics. Skin/Wound/Dressing Care Report to your healthcare provider any signs of infection, such as:: chills, fever, increased pain and unusual drainage Visit Report/Discharge Packet Instructions: Gallstones, DI for Cholecystectomy, DI for Laparoscopy Discharge Data Attending Provider: Xavi Amato Admit Date/Time: 05/23/19 02:03 Discharges patient from system. Discharge Date/Time: 05/23/19 21:00 Quality VTE Deep Vein Thrombosis/Pulmonary Embolism Present on Admission: No
== END 2019-05-23 21:00 | disposition home or self-care (01) ==
LOC: ED 05-23 02:02 → AC 05-23 02:04
PROVIDERS: Admitting Provider Surgery; Emergency Provider Emergency Medicine; Visit Provider Surgery
PROC: 0FT44ZZ Resection of Gallbladder, Percutaneous Endoscopic Approach (ICD-10-PCS; CPT 47562; principal; 2019-05-23 12:00)
DX: K80.00 Calculus of gallbladder with acute cholecystitis without obstruction (principal); R10.11 Right upper quadrant pain; K21.9 Gastro-esophageal reflux disease without esophagitis
CPT/HCPCS: 47562; 36415; 74019; 74176; 76000; 76705; 80053; 81003; 81015; 83690; 85025; 93005; 96361; 96372; 96374; 96375; 96376; 99283; 99285; G0378; J0330; J1100; J1170; J1885; J2250; J2405; J2543; J2704; J2710; J3010; J3410

== ENCOUNTER 2020-04-01 11:31 | Emergency (ER) | payer BC, SELFPAY ==
[2019-05-23 02:27] VITALS: BMI 32.7
[2020-04-01] VITALS (10 sets, daily range): BP systolic 135–147; BP diastolic 79–92; PULSE 75–81; RESP 16–47; TEMP 36.3; O2SAT 96–100; BMI 33.7
--- NOTE | 2020-04-01 11:42 | ED_ITS ---
HPI - Abdominal Pain General Chief Complaint: Abdominal Pain Stated Complaint: upper abdominal pain Time Seen by Provider: 04/01/20 11:40 Source: patient Mode of arrival: Ambulatory Limitations: no limitations History of Present Illness HPI narrative: Patient is a 34-year-old male history of cholecystectomy presenti with epigastric pain which started last evening. He says it now radiates around the left side and through to his back. He had some diarrhea yesterday but that resolved today he has no nausea or vomiting. He has some mild chest discomfort but no shortness of breath fever or chills. His pain is not associated with eating. No chronic use of ibuprofen MD complaint: abdominal pain Pain Consistency: constant Location: LUQ and epigastric Related Data Home Medications Medication Instructions Recorded Confirmed omeprazole magnesium [Acid Urban Sociologist 20 mg PO DAILY 10/28/18 06/05/19 (omeprazole)] Previous Rx's Medication Instructions Recorded acetaminophen [Tylenol] 650 mg PO QID PRN #60 cap 05/23/19 ibuprofen 800 mg PO Q6H PRN #60 tab 05/23/19 oxycodone 5 mg PO Q6H PRN #30 tab 05/23/19 Allergies Allergy/AdvReac Type Severity Reaction Status Date / Time No Known Drug Allergies Allergy Verified 06/05/19 09:30 Review of Systems Review of Systems Narrative: GENERAL: Denies chills, fatigue, malaise, fever, sweats, travel HEENT: Denies sinus pain, ear pain, sore throat, difficulty swallowing, neck pain RESPIRATORY: Denies dyspnea, cough, wheezing, hemoptysis, sputum. CARDIOVASCULAR: Denies chest pain, palpitations, orthopnea, edema GASTROINTESTINAL: See HPI : Denies dysuria, frequency, incontinence, hematuria, urinary retention, flank pain. MUSCULOSKELETAL: Denies weakness, joint pain, or bony pain SKIN: No rash, no erythema, no pruritus NEUROLOGIC: Denies weakness, dizziness, headache, numbness, change in speech, confusion PSYCHIATRIC: No concerning psychosocial issues. 12 point review of systems is negative except for those stated above and HPI Patient History Medical History Gastroesophageal reflux disease (Acute) Social History household members: significant other and family Smoking Status: Never smoker Smoking Status: Never smoker alcohol intake frequency: other Substance Use Type: does not use Exam Initial Vital Signs Initial Vital Signs: Vital Signs Pulse Oximetry 99 04/01/20 11:37 GENERAL: Well-appearing, well-nourished and in no acute distress. HEENT: Head atraumatic,EOMI, pupils reactive, face symmetric, moist mucous membranes CARDIOVASCULAR: Regular rate and rhythm without murmurs, rubs or gallops. RESPIRATORY: Breath sounds equal bilaterally, no wheezes rales or rhonchi. ABDOMEN: Soft, epigastric discomfort. Negative Saunders sign Normoactive bowel sounds all 4 quadrants. No guarding or rebound. EXTREMITIES: Normal range of motion, no clubbing or edema. Neurovascularly intact NEUROLOGICAL: Alert and oriented x4.Normal gait and speech. Cranial nerves II through XII grossly intact. SKIN: Warm, dry, no laceration, no petechiae, no rashes or lesions. Course Orders Ordered: ED Orders 04/01/20 11:47 EKG-12 Lead Stat 04/01/20 12:06 Complete Blood Count AUTO DIFF Stat Comprehensive Metabolic Panel Stat Lipase Stat Partial Thromboplastin Time Stat Prothrombin Time INR Stat Troponin & CK Cardiac Panel Stat Discontinued Medications Pantoprazole Sodium (Protonix) 40 mg IV NOW ONE Stop: 04/01/20 11:57 Last Admin: 04/01/20 12:57 Dose: 40 mg Documented by: SIMRAN Vital Signs Vital signs: Vital Signs - 8 hr 04/01/20 11:37 04/01/20 11:38 04/01/20 11:39 Temperature Pulse Rate 75 Respiratory Rate 16 Blood Pressure 137/92 H Pulse Oximetry 99 98 96 04/01/20 11:42 04/01/20 11:43 04/01/20 12:00 Temperature 97.3 F L Pulse Rate 79 81 Respiratory Rate 18 22 Blood Pressure 145/79 H 137/92 H 145/82 H Pulse Oximetry 100 100 04/01/20 12:30 04/01/20 13:00 04/01/20 13:30 Temperature Pulse Rate 78 76 79 Respiratory Rate 23 17 47 H Blood Pressure 135/84 140/84 Pulse Oximetry 99 99 98 04/01/20 13:31 Temperature Pulse Rate 80 Respiratory Rate Blood Pressure 147/87 H Pulse Oximetry 98 MDM - Abdominal Pain Lab Data Attestation: I reviewed the patient's lab results. Result diagrams: 04/01/20 12:06 04/01/20 12:06 Labs: Lab Results 04/01/20 04/01/20 04/01/20 Range/Units 12:06 12:06 12:06 WBC 10.2 (4.5-11.0) X10^3/uL RBC 5.41 (4.5-5.9) X10^6/uL Hgb 15.7 (13.5-17.5) g/dL Hct 45.0 (41-53) % MCV 83.2 (80-100) fL MCH 28.9 (26-34) PG MCHC 34.8 (30-36) % RDW 13.3 (11.6-14.8) % Plt Count 268 (150-400) X10^3/uL Neut % (Auto) 68.6 (50-75) % Lymph % (Auto) 21.6 L (25-40) % [place] % (Auto) 6.5 (3-14) % Eos % (Auto) 2.2 (2-4) % Baso % (Auto) 1.1 (0-2) % Neut # (Auto) 7000 (0431-0684) /uL Lymph # (Auto) 2200 (1815-5873) /uL [place] # (Auto) 700 (0-900) /uL Eos # (Auto) 200 (0-450) /uL Baso # (Auto) 100 (0-100) /uL PT 11.9 (10.1-12.7) SECONDS INR 1.0 (0.9-1.3) APTT 32 (26.4-36.2) SECONDS Sodium 139 (137-145) mmol/L Potassium 4.1 (3.4-5.1) mmol/L Chloride 103 (98-107) mmol/L Carbon Dioxide 30 (22-32) mmol/L BUN 17 (9-20) mg/dL Creatinine 0.73 (0.66-1.25) mg/dL Estimated GFR > 60.0 (>60) mL/min BUN/Creatinine Ratio 23.3 H (6-22) Glucose 89 (70-100) mg/dL Calcium 9.1 (8.4-10.2) mg/dL Total Bilirubin 1.5 H (0.2-1.3) mg/dL AST 37 (17-59) IU/L ALT 59 H (<50) IU/L Alkaline Phosphatase 95 (38-126) U/L Total Creatine Kinase (55-170) U/L CK-MB (CK-2) (<2.37) ng/mL CK-MB (CK-2) Rel Index (1.5-5.0) % Troponin I (0.01-0.034) ng/mL Total Protein 7.7 (6.3-8.2) g/dL Albumin 4.4 (3.5-5.0) g/dL Globulin 3.3 (1.7-4.1) g/dL Albumin/Globulin Ratio 1.3 (1.0-2.8) Lipase 64 (23-300) U/L 04/01/20 Range/Units 12:06 WBC (4.5-11.0) X10^3/uL RBC (4.5-5.9) X10^6/uL Hgb (13.5-17.5) g/dL Hct (41-53) % MCV (80-100) fL MCH (26-34) PG MCHC (30-36) % RDW (11.6-14.8) % Plt Count (150-400) X10^3/uL Neut % (Auto) (50-75) % Lymph % (Auto) (25-40) % [place] % (Auto) (3-14) % Eos % (Auto) (2-4) % Baso % (Auto) (0-2) % Neut # (Auto) (7978-4988) /uL Lymph # (Auto) (0359-2599) /uL [place] # (Auto) (0-900) /uL Eos # (Auto) (0-450) /uL Baso # (Auto) (0-100) /uL PT (10.1-12.7) SECONDS INR (0.9-1.3) APTT (26.4-36.2) SECONDS Sodium (137-145) mmol/L Potassium (3.4-5.1) mmol/L Chloride (98-107) mmol/L Carbon Dioxide (22-32) mmol/L BUN (9-20) mg/dL Creatinine (0.66-1.25) mg/dL Estimated GFR (>60) mL/min BUN/Creatinine Ratio (6-22) Glucose (70-100) mg/dL Calcium (8.4-10.2) mg/dL Total Bilirubin (0.2-1.3) mg/dL AST (17-59) IU/L ALT (<50) IU/L Alkaline Phosphatase (38-126) U/L Total Creatine Kinase 196 H (55-170) U/L CK-MB (CK-2) 0.81 (<2.37) ng/mL CK-MB (CK-2) Rel Index 0.4 L (1.5-5.0) % Troponin I < 0.012 (0.01-0.034) ng/mL Total Protein (6.3-8.2) g/dL Albumin (3.5-5.0) g/dL Globulin (1.7-4.1) g/dL Albumin/Globulin Ratio (1.0-2.8) Lipase (23-300) U/L Point of care testing: Urine Dip Bedside Urine Glucose Negative Bedside Urine Bilirubin - Negative Bedside Urine Ketone - Negative Urine Specific [place] 1.020 Bedside Urine Occult Blood - Negative Bedside Urine pH 6.0 Bedside Urine Protein - Negative Bedside Urine Urobilinogen - Negative Bedside Urine Nitrite - Negative Bedside Urine Leukocytes - Negative Esterase ECG Data Attestation: I personally reviewed and interpreted this ECG as follows: Prior ECG tracings: available for review Interpretation: Normal sinus rhythm rate 73 p.r. interval 200 QRS [address] changes a Q-wave noted in lead 3 nonpathologic similar to previous EKG MDM Narrative Medical decision making narrative: Patient's bilirubin is at baseline for him he has no right upper quadrant pain. He has some epigastric pain EKG troponin are negative this not seem to be cardiac he has no risk factors. With also been ongoing for more than 6 hours it has low risk heart score. He is already taking antacid medication, he does not take NSAID this is unlikely to be an ulcer. His pain is well controlled in the ER and not requiring any medication. At this time no need for any imaging recommend outpatient follow-up Discharge Plan Departure Patient Disposition: Home Clinical Impression: Abdominal pain Qualifiers: Abdominal location: epigastric Qualified Code(s): R10.13 - Epigastric pain Discharge Date/Time: 04/01/20 14:08 Instructions: DI for Abdominal Pain-Adult Activity Restrictions/Additional Instructions: *You have been diagnosed with abdominal pain *What to do: At this time blood work and EKG are overall reassuring no need for imaging. Recommend rest, stay hydrated if her pain worsens or continues please return to the ER any may require imaging studies at that time *Continue to take medications as directed Tylenol 650 mg every 6 hours if needed for pain *Follow up with your primary care provider in 2-3 days *Return to ER if you should have increasing pain, persistent vomiting, inability to tolerate fluids or any new, worsening or concerning symptoms Prescriptions: No Action omeprazole magnesium [Acid Urban Sociologist (omeprazole)] 20 mg Capsule,Delayed Release(Dr/Ec) 20 mg PO DAILY RF: 0 ibuprofen 200 mg tablet 800 mg PO Q6H PRN (Reason: pain) Qty: 60 RF: 0 oxycodone 5 mg tablet 5 mg PO Q6H PRN (Reason: pain) Qty: 30 RF: 0 acetaminophen [Tylenol] 325 mg capsule 650 mg PO QID PRN (Reason: pain) Qty: 60 RF: 0 Referrals: [facility] [Outside]
[2020-04-01 12:47] LABS: Add Manual Diff / Slide Review NO; Basophils Absolute Auto 100 /uL (0-100); Basophils Percent Auto 1.1 % (0-2); Eosinophils Absolute Auto 200 /uL (0-450); Eosinophils Percent Auto 2.2 % (2-4); Hemoglobin 15.7 g/dL (13.5-17.5); Lymphocytes Absolute Auto 2200 /uL (1100-4500); Lymphocytes Percent Auto 21.6 % (25-40); Mean Corpuscular HGB Conc 34.8 % (30-36); Mean Corpuscular Hemoglobin 28.9 PG (26-34); Mean Corpuscular Volume 83.2 fL (80-100); Monocytes Absolute Auto 700 /uL (0-900); Monocytes Percent Auto 6.5 % (3-14); Neutrophils Absolute Auto 7000 /uL (1500-7000); Neutrophils Percent Auto 68.6 % (50-75); Platelet Count 268 X10^3/uL (150-400); Red Blood Cell Count 5.41 X10^6/uL (4.5-5.9); Red Cell Distribution Width 13.3 % (11.6-14.8); White Blood Cell Count 10.2 X10^3/uL (4.5-11.0)
[2020-04-01 12:55] LABS: Prothrombin Time 11.9 SECONDS (10.1-12.7)
[2020-04-01] MEDS: PANTOPRAZOLE 40 MG VIAL IV (12:57)
[2020-04-01 12:58] LABS: PTT Partial Thromboplastin Tim 32 SECONDS (26.4-36.2)
[2020-04-01 13:00] LABS: Alanine Aminotransferase 59 IU/L (<50); Albumin 4.4 g/dL (3.5-5.0); Albumin Globulin Ratio 1.3 (1.0-2.8); Alkaline Phosphatase 95 U/L (38-126); Aspartate Aminotransferase 37 IU/L (17-59); BUN Creatinine Ratio 23.3 (6-22); Bilirubin Total 1.5 mg/dL (0.2-1.3); Blood Urea Nitrogen 17 mg/dL (9-20); Calcium 9.1 mg/dL (8.4-10.2); Carbon Dioxide 30 mmol/L (22-32); Chloride 103 mmol/L (98-107); Estimated Glomerular Filt Rate > 60.0 mL/min (>60); Globulin 3.3 g/dL (1.7-4.1); Glucose 89 mg/dL (70-100); HEMOLYSIS < 15 (0-50); Lipase 64 U/L (23-300); Potassium 4.1 mmol/L (3.4-5.1); Sodium 139 mmol/L (137-145); Total Protein 7.7 g/dL (6.3-8.2)
[2020-04-01 13:44] LABS: Creatine Kinase 196 U/L (55-170)
[2020-04-01 13:57] LABS: Troponin I < 0.012 ng/mL (0.01-0.034)
[2020-04-01 14:00] LABS: CKMB % Relative Index 0.4 % (1.5-5.0); Creatine Kinase MB 0.81 ng/mL (<2.37)
== END 2020-04-01 14:08 | disposition home or self-care (01) ==
PROVIDERS: Emergency Provider Emergency Medicine
DX: R10.13 Epigastric pain (principal)
CPT/HCPCS: 36415; 80053; 81003; 82550; 82553; 83690; 84484; 85025; 85610; 85730; 93005; 99284; C9113

== ENCOUNTER → 2020-08-21 10:10 | Outpatient (CLI) | payer BC, SELFPAY ==
[2019-05-23 02:27] VITALS: BMI 32.7
[2020-08-22 09:19] LABS: COVID19 -Nasal RAPID Negative (Negative)
== END ==
PROVIDERS: Visit Provider Nurse Practitioner
DX: Z20.822 Contact with and (suspected) exposure to COVID-19 (principal)
CPT/HCPCS: 87635